=== PATIENT | male | born 1955 | race Caucasian/White ===

== ENCOUNTER 2021-07-23 12:36 | Outpatient (RCR) | payer MEDICARE, SELFPAY | END 2021-10-22 07:22 | disposition home or self-care (01) | LOC: HO.WCC 12:36 | PROVIDERS: PCP Physician Assistant Medical; Visit Provider Physician Assistant | DX: E11.621 Type 2 diabetes mellitus with foot ulcer (principal); L97.522 Non-pressure chronic ulcer of other part of left foot with fat layer exposed; I87.312 Chronic venous hypertension (idiopathic) with ulcer of left lower extremity; T87.81 Dehiscence of amputation stump; Z89.412 Acquired absence of left great toe | CPT/HCPCS: 11042; 15271; 15275; 97597; 99212; Q4186; Q4187 ==

== ENCOUNTER 2021-11-11 13:04 | Outpatient (RCR) | payer MEDICARE, SELFPAY | END 2022-05-21 09:12 | disposition home or self-care (01) | LOC: HO.WCC 13:04 | PROVIDERS: PCP Physician Assistant Medical; Visit Provider Surgery | DX: Z09 Encounter for follow-up examination after completed treatment for conditions other than malignant neoplasm (principal); L84 Corns and callosities; E11.9 Type 2 diabetes mellitus without complications; Z89.412 Acquired absence of left great toe; Z86.31 Personal history of diabetic foot ulcer | CPT/HCPCS: 11042; 15275; 97597; 99212; 99213; Q4187 ==

== ENCOUNTER 2022-06-10 08:01 | Outpatient (RCR) | payer MEDICARE, SELFPAY | END 2022-09-09 14:17 | disposition home or self-care (01) | LOC: HO.WCC 08:01 | PROVIDERS: PCP Physician Assistant Medical; Visit Provider Physician Assistant | DX: E11.621 Type 2 diabetes mellitus with foot ulcer (principal); L97.522 Non-pressure chronic ulcer of other part of left foot with fat layer exposed; L03.032 Cellulitis of left toe; Q82.0 Hereditary lymphedema; L84 Corns and callosities; E11.40 Type 2 diabetes mellitus with diabetic neuropathy, unspecified; I12.9 Hypertensive chronic kidney disease with stage 1 through stage 4 chronic kidney disease, or unspecified chronic kidney disease; N18.30 Chronic kidney disease, stage 3 unspecified; Z89.412 Acquired absence of left great toe; Z86.711 Personal history of pulmonary embolism; Z79.4 Long term (current) use of insulin | CPT/HCPCS: 11042; 11055; 15275; 99212; Q4187 ==

== ENCOUNTER 2022-11-02 07:57 | Outpatient (RCR) | payer MEDICARE, SELFPAY ==
--- NOTE | ~2022-11-02 | XR_ITS ---
EXAMINATION: XR FOOT, LEFT CLINICAL INFORMATION: Nonhealing wound of second toe. COMPARISON: None available. TECHNIQUE: AP, lateral, and oblique views of the left foot. FINDINGS: There has been a prior amputation at the level of the left first metatarsal head. The amputation margin is relatively sharp. There are left second through fourth hammertoe configurations. Charcot degenerative changes are seen of the midfoot. Boehler's angle is normal. There is a large plantar calcaneal spur. On the lateral view, there is mild irregularity of the cortical surface of the tuft of the second toe. No soft tissue gas or foreign body is seen. XR/XR foot LT min 3V IMPRESSION: There has been a prior left great toe amputation, with sharp amputation margin. There is mild cortical irregularity of the tuft of the second toe, raising the possibility of early osteomyelitis. This could be more fully evaluated with dedicated left second toe radiographs and/or MRI, if clinically indicated.
== END 2022-12-22 16:00 | disposition home or self-care (01) ==
LOC: HO.WCC 07:57
PROVIDERS: PCP Physician Assistant Medical; Visit Provider Physician Assistant
DX: E11.621 Type 2 diabetes mellitus with foot ulcer (principal); L97.522 Non-pressure chronic ulcer of other part of left foot with fat layer exposed; E11.69 Type 2 diabetes mellitus with other specified complication; M86.472 Chronic osteomyelitis with draining sinus, left ankle and foot; E11.40 Type 2 diabetes mellitus with diabetic neuropathy, unspecified; E11.22 Type 2 diabetes mellitus with diabetic chronic kidney disease; I12.9 Hypertensive chronic kidney disease with stage 1 through stage 4 chronic kidney disease, or unspecified chronic kidney disease; N18.30 Chronic kidney disease, stage 3 unspecified; Z89.412 Acquired absence of left great toe; Z86.711 Personal history of pulmonary embolism
CPT/HCPCS: 11042; 11044; 73630; 99212

== ENCOUNTER 2022-12-17 16:08 | Outpatient (REF) | payer MEDICARE, SELFPAY | END 2022-12-17 16:09 | disposition home or self-care (01) | LOC: HO.LNP 16:08 | PROVIDERS: Visit Provider Physician Assistant | DX: S91.105D Unspecified open wound of left lesser toe(s) without damage to nail, subsequent encounter (principal) | CPT/HCPCS: 87070; 87077; 87147; 87186; 87205 ==

== ENCOUNTER 2023-05-20 12:41 | Outpatient (RCR) | payer MEDICARE, SELFPAY | END 2023-08-10 17:00 | disposition home or self-care (01) | LOC: HO.WCC 12:41 | PROVIDERS: PCP Physician Assistant Medical; Visit Provider Physician Assistant | DX: E11.621 Type 2 diabetes mellitus with foot ulcer (principal); L97.525 Non-pressure chronic ulcer of other part of left foot with muscle involvement without evidence of necrosis; E11.40 Type 2 diabetes mellitus with diabetic neuropathy, unspecified; E11.610 Type 2 diabetes mellitus with diabetic neuropathic arthropathy; E11.22 Type 2 diabetes mellitus with diabetic chronic kidney disease; I12.9 Hypertensive chronic kidney disease with stage 1 through stage 4 chronic kidney disease, or unspecified chronic kidney disease; N18.30 Chronic kidney disease, stage 3 unspecified; D68.51 Activated protein C resistance; Z89.412 Acquired absence of left great toe; Z89.422 Acquired absence of other left toe(s); Z86.718 Personal history of other venous thrombosis and embolism; Z79.01 Long term (current) use of anticoagulants | CPT/HCPCS: 11042; 11043 ==

== ENCOUNTER 2023-07-20 16:30 | Inpatient (IN) | payer MEDICARE, SELFPAY ==
--- NOTE | ~2023-07-20 | CT_ITS ---
EXAMINATION: CT SCAN OF THE FOOT, LEFT WITHOUT CONTRAST CLINICAL INFORMATION: Evaluate for osteomyelitis. COMPARISON: Multiple prior examinations including most recent x-ray 07/20/2023 and prior MRI of the left foot May 2022. TECHNIQUE: CT scan of the left foot is performed with reconstruction imaging performed at the acquisition workstation. FINDINGS: There are findings consistent with advanced neuropathic arthropathy throughout the joints of the midfoot with resultant joint space narrowing, bone fragmentation, subluxation beginning at the calcaneocuboid joint and talonavicular joint through the tarsometatarsal joints, unchanged compared to examinations dating back to May 2022. There is been amputation distal to level of the head of the 1st metatarsal and distal to the level of the proximal portion of the middle phalanx of the 2nd toe. There is articular collapse at the level of the 2nd and 3rd tarsometatarsal joints, unchanged, which are compatible with arthrosis and Freiberg's infraction. There is a superficial ulceration/defect in the plantar soft tissues in the midfoot at the level of the distal cuboid. This measures 16 mm craniocaudal and 13 mm transverse and extends up to 4 mm deep to the skin. There is generalized fluid-like density surrounding this ulceration as well as throughout the foot without a clear focal fluid collection. The appearance is consistent with edema with concomitant cellulitis. Small adjacent localized abscess difficult to exclude. I do not see a definite sinus tract extending to the bone or bone erosion deep to the soft tissue defect. There is arterial calcification, unchanged. Calcaneal spurs noted. CT/CT foot LT wo IV con IMPRESSION: Superficial defect along the plantar aspect of the distal midfoot compatible with an ulceration. I suspect that there is surrounding edema/cellulitis although the soft tissue changes or diffuse throughout the foot compatible with generalized edema and/or cellulitis. I do not see a focal fluid collection/abscess although this is difficult to exclude given the generalized abnormality in the soft tissues throughout the foot. No specific findings to suggest osteomyelitis. There are extensive chronic changes throughout the foot compatible with neuropathic arthropathy which have remained unchanged. 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 The findings in the head of the 3rd metatarsal appears new since the MRI May 2022. Stable postsurgical changes.
--- NOTE | ~2023-07-20 | US_ITS ---
EXAMINATION: US VENOUS ULTRASOUND WITH DOPPLER LOWER EXTREMITY, LEFT CLINICAL INFORMATION: Swelling and redness. COMPARISON: None available. TECHNIQUE: Ultrasound of the deep veins is performed from the hip to the calf with compression sonography and color and pulse Doppler assessment. Spectral analysis with color-flow imaging is performed. FINDINGS: Left common femoral, superficial femoral and profunda femoral veins are patent. There is nonocclusive thrombus seen in the popliteal vein. Calf veins not well visualized. No Jensen's cyst. US/US venous duplex LE LT IMPRESSION: Nonocclusive thrombus in the popliteal vein. Findings were communicated to Berto Belcher by telephone on 07/20/2023 at 9:56 PM
--- NOTE | ~2023-07-20 | XR_ITS ---
EXAMINATION: XR FOOT, LEFT CLINICAL INFORMATION: History of osteochondral, swelling COMPARISON: 12/17/2022 TECHNIQUE: 3 views of the left foot. FINDINGS: Findings suggest some possible demineralization of the distal first metatarsal. There is also a foreshortened appearance to the distal phalanx of the second digit which could represent surgical change. There is also some incongruity involving the distal aspect of the proximal phalanx of the second digit. Findings may suggest some erosion involving the proximal phalanx of the third digit. The appearance of the bone is changing from previous. There is also a possible bony erosion involving the distal third metatarsal. XR/XR foot LT min 3V IMPRESSION: Findings in the first second and third digit as described. Certainly osteomyelitis could not be excluded here. Recommend pre and postcontrast MRI for full evaluation
--- NOTE | ~2023-07-20 | IR_ITS ---
CLINICAL HISTORY: IV antibiotics. PROCEDURES: 1. Real-time ultrasound guided access into the right internal jugular vein after documentation of selective vessel patency, and permanent imaging storing in the patient records. 2. Placement of a 6 Fr, 29 cm tunneled, dual-lumen power injectable Barnard CLINICIAN: Iker Rios PA-C MEDICATIONS: -Lidocaine 1% 10 ml, SQ. -Additional details, please see nursing flowsheet. Complications: None. Estimated blood loss: <5 ml Specimens: None. Contrast: None. Fluoroscopy time: 0.9 min PROCEDURE NOTE: The procedure, risks, benefits, and alternatives were carefully explained to the patient and written informed consent was obtained. The patient was placed supine on the fluoroscopy table. A timeout was performed. The right neck and chest was prepped and draped in usual sterile fashion. Local anesthesia was administered to the right neck access site with lidocaine. Under ultrasound guidance, the right internal jugular vein was accessed with a 5 fr micropuncture set. A permanent ultrasound picture was saved. A peel-away sheath was advanced over the wire. The catheter was measured and cut to length. Next, subcutaneous lidocaine was administered to the chest. Using blunt dissection, a subcutaneous tunnel was created that connects from the upper chest to the venotomy site. The catheter was pulled through the tunnel. The catheter was advanced through the sheath, which was subsequent peeled away. The catheter was tested, flushed, and sutured to the skin with its tip in the cavoatrial junction. The venotomy site was closed with surgical glue. A dry sterile dressing was applied to the chest and the venotomy site. A permanent chest fluoroscopic image was saved demonstrating the catheter tip in the cavoatrial junction. The patient was stable after the procedure was transferred back to the floor. IR/IR us guide venous access IMPRESSION: Placement of a tunneled dual-lumen Barnard catheter PLAN: -The catheter may be used immediately. This procedure was performed by Iker Rios PA-C, and supervised by Dr. Knapp
--- NOTE | ~2023-07-20 | IR_ITS ---
CLINICAL HISTORY: IV antibiotics. PROCEDURES: 1. Real-time ultrasound guided access into the right internal jugular vein after documentation of selective vessel patency, and permanent imaging storing in the patient records. 2. Placement of a 6 Fr, 29 cm tunneled, dual-lumen power injectable Barnard CLINICIAN: Iker Rios PA-C MEDICATIONS: -Lidocaine 1% 10 ml, SQ. -Additional details, please see nursing flowsheet. Complications: None. Estimated blood loss: <5 ml Specimens: None. Contrast: None. Fluoroscopy time: 0.9 min PROCEDURE NOTE: The procedure, risks, benefits, and alternatives were carefully explained to the patient and written informed consent was obtained. The patient was placed supine on the fluoroscopy table. A timeout was performed. The right neck and chest was prepped and draped in usual sterile fashion. Local anesthesia was administered to the right neck access site with lidocaine. Under ultrasound guidance, the right internal jugular vein was accessed with a 5 fr micropuncture set. A permanent ultrasound picture was saved. A peel-away sheath was advanced over the wire. The catheter was measured and cut to length. Next, subcutaneous lidocaine was administered to the chest. Using blunt dissection, a subcutaneous tunnel was created that connects from the upper chest to the venotomy site. The catheter was pulled through the tunnel. The catheter was advanced through the sheath, which was subsequent peeled away. The catheter was tested, flushed, and sutured to the skin with its tip in the cavoatrial junction. The venotomy site was closed with surgical glue. A dry sterile dressing was applied to the chest and the venotomy site. A permanent chest fluoroscopic image was saved demonstrating the catheter tip in the cavoatrial junction. The patient was stable after the procedure was transferred back to the floor. IR/IR cvc insert central tunnel IMPRESSION: Placement of a tunneled dual-lumen Barnard catheter PLAN: -The catheter may be used immediately. This procedure was performed by Iker Rios PA-C, and supervised by Dr. Knapp
--- NOTE | 2023-07-20 16:40 | ED.EXTPRO ---
HPI - Extremity Problem General Chief complaint: Skin/Abscess/Foreign Body Stated complaint: L foot ulcer that's infected.+thinner Time Seen by Provider: 07/20/23 16:37 Source: patient Mode of arrival: EMS Limitations: no limitations History of Present Illness HPI Narrative: 68 yo male with PMH of DM, osteo s/p loss of L great toe in past, factor V leiden on coumadin, HTN, HLD, obesity, recent infection back in December follows with our wound care center - + for staph aureus and stenotrophomonas maltophilia both S to levofloxacin. He has a chronic ulcer on L plantar surface of foot that the wound care center and [facility] manages. The left leg has become more swollen red and there is an odor to the wound. He denies n/v or fevers. MD Complaint: other (concern for wound infection) Onset (ago): day(s) (few) Pain Consistency: constant Location: left and lower extremity Radiation: none Relieving factors: nothing Exacerbating factors: nothing Associated symptoms: denies other symptoms Context: other (chronic foot wound) Related Data Home Medications Medication Instructions Recorded Confirmed atorvastatin 10 mg tablet 10 mg PO BEDTIME 07/20/23 07/20/23 carvedilol 25 mg tablet 25 mg PO BID 07/20/23 07/20/23 chlorthalidone 25 mg tablet 25 mg PO DAILY 07/20/23 07/20/23 glipizide 10 mg tablet 10 mg PO BID 07/20/23 07/20/23 insulin degludec 100 unit/mL (3 61 unit subcut BEDTIME 07/20/23 07/20/23 mL) subcutaneous pen (Tresiba FlexTouch U-100 insulin) insulin lispro 100 unit/mL 0 sliding scale dose subcut TIDAC 07/20/23 07/20/23 subcutaneous pen (Humalog KwikPen (U-100) Insulin) irbesartan 300 mg tablet 300 mg PO DAILY 07/20/23 07/20/23 metformin 1,000 mg tablet 1,000 mg PO BID 07/20/23 07/20/23 warfarin 10 mg tablet 10 mg PO DAILY@1800 07/20/23 07/20/23 warfarin 2 mg tablet 3 mg PO MOTHSA@1800 07/20/23 07/20/23 warfarin 2 mg tablet 4 mg PO SUTUWEFR@1800 07/20/23 07/20/23 Allergies Allergy/AdvReac Type Severity Reaction Status Date / Time No Known Allergies Allergy Verified 07/20/23 16:53 Review of Systems Review of Systems: Constitutional : No Fever, No Chills ENT/Mouth : No sore throat, No Rhinorrhea Eyes: No Eye Pain, No Swelling, No Redness Cardiovascular : No Chest Pain, No SOB, pos edema Respiratory : No Cough, No Sputum Gastrointestinal : No Nausea, No Vomiting, No Diarrhea, No abdominal Pain Genitourinary : No Dysuria, No Hematuria Musculoskeletal : No joint pain, No Myalgias, No Joint Swelling Skin : pos Skin Lesions, positive skin rash Neuro : No Weakness, No Numbness, No Headache Psych : No Anxiety, No Depression Heme/Lymph: No Bruising, No Bleeding,No Lymphadenopathy Endocrine : No Polyuria, No Polydipsia All other systems reviewed and are negative [facility] Past Medical History Attestation statement: The following information was validated with the patient. Medical History (Updated 07/20/23 @ 18:08 by Tanya Marvin DO) Amputation toe Chronic ulcer of left foot Factor V Leiden Diabetes Social History Social History (Updated 07/20/23 @ 17:02 by Tanya Marvin DO) Patient Tobacco Use Status: Never used Tobacco Advance Directives: No Advance Directives Information Provided: No Physical Exam Vital Signs: Vital Signs: Last Vital Signs Temp 98.8 F 07/20/23 16:54 Pulse 76 07/20/23 16:54 Resp 20 07/20/23 16:54 BP 123/58 L 07/20/23 16:54 Pulse Ox 95 07/20/23 16:54 O2 Del Method Room Air 07/20/23 16:54 BMI result Body Mass Index 53.8 Appearance: Alert. Oriented X3. No acute distress. Eyes: Pupils equal, round and reactive to light. ENT: Pharynx normal. Neck: Normal inspection. Neck supple. CVS: Normal heart rate and rhythm. Pulses normal. Respiratory: No respiratory distress. Breath sounds normal. Abdomen: Soft and nontender. Skin: Skin warm and dry. Normal skin color. Normal skin turgor. Extremities: bilateral pitting edema to both legs L > R. Left leg is warm and has erythema no crepitus no fluctuance bottom of foot is open dime sized packed wound with yellow foul smelling drainage - rednesss and swelling noted, no ttp, bounding 2+ pulse noted Neuro: Oriented X 3. No motor deficit. No sensory deficit. Course Course Course Narrative: unable to get CKD value from [facility] - patient states he thinks his GFR is 30 or 40 but not sure Medications Administered Discontinued Medications Generic Name Dose Route Start Last Admin Trade Name Sade PRN Reason Stop Dose Admin Levofloxacin 750 mg in 150 mls @ 100 mls/hr 07/20/23 16:53 07/20/23 17:53 Levaquin IV 07/20/23 18:22 100 mls/hr ONCE ONE Administration Medical Decision Making Medical Decision Making [facility] Narrative: 68 yo male with PMH of DM, osteo s/p loss of L great toe in past, factor V leiden on coumadin, HTN, HLD, obesity, recent infection back in December follows with our wound care center - + for staph aureus and stenotrophomonas maltophilia both S to levofloxacin now here with increased leg swelling, erythema and wound discharge - at this time concern for cellulitis vs osteo. Given recent cultures I have ordered labs, IV levofloxacin, cultures and xray for osteo. Possible admission for IV antibiotics and bone scan. Differential Diagnosis Differential Diagnoses: The differential diagnosis associated with the presentation includes cellulitis, osteo Admission/Observation Consideration of admission/observation: Escalation of care including admission/observation considered admit for IV abx and osteo workup Consult Healthcare Provider Management of the patient was discussed with: Hospitalist (agrees to admit) Lab Data [facility] Lab Attestation statement: I reviewed the patient's lab results. 07/20/23 17:47 07/20/23 17:47 Labs: Lab Results 07/20/23 Range/Units 17:47 WBC 11.4 H (4.8-10.8) X10*3/uL RBC 4.32 L (4.60-5.80) X10*6/uL Hgb 12.3 L (14.0-18.0) g/dl Hct 37.6 L (42.0-52.0) % MCV 87.0 (80.0-98.0) fL MCH 28.5 (27.0-33.0) pg MCHC 32.7 (31.0-36.0) g/dl RDW 15.9 (11.0-16.0) % Plt Count 110 L (160-400) X10*3/uL MPV 9.7 (9.4-12.4) fL Immature Gran % (Auto) 0.7 H (0.0-0.4) % Neut % (Auto) 83.0 H (45-73) % Lymph % (Auto) 6.0 L (20-40) % [place] % (Auto) 9.6 (2-11) % Eos % (Auto) 0.4 (0-4) % Baso % (Auto) 0.3 (0-2) % Lymph # (Auto) 0.7 L (1.2-4.9) X10*3/uL [place] # (Auto) 1.1 (0.1-1.2) X10*3/uL Eos # (Auto) 0.1 (0.0-0.4) X10*3/uL Baso # (Auto) 0.0 (0.0-0.2) X10*3/uL Abs Immat Gran (auto) 0.08 H (0.00-0.03) X10*3/uL Absolute Neuts (auto) 9.5 H (2.0-8.3) x10*3/uL Absolute Nucleated RBC 0.000 (0.0-0.012) X10*3/uL Nucleated RBC % (auto) 0.0 (0.0-0.2) /100WBC ESR 80 H (0-15) MM/HR PT 35.1 H (11.1-13.3) SEC INR 2.9 H (0.9-1.1) Sodium 138 (135-145) mmol/L Potassium 5.0 (3.3-5.1) mmol/L Chloride 106 (96-108) mmol/L Carbon Dioxide 26 (22-29) mmol/L Anion Gap 11 L (12-20) BUN 54 H (9-16) mg/dL Creatinine 2.42 H (0.5-1.4) mg/dL Estim Creat Clear Calc 51.0 Estimated GFR 27 Random Glucose 165 H (60-115) mg/dL Lactic Acid 1.0 (0.5-2.0) mmol/L Calcium 8.6 (8.4-10.2) mg/dL Magnesium 1.9 (1.6-2.6) mg/dL Total Bilirubin 1.6 H (0.0-1.0) mg/dL Direct Bilirubin 0.5 (0.0-0.5) mg/dL AST 13 (5-37) U/L ALT 16 (0-40) U/L Alkaline Phosphatase 61 (39-117) U/L C-Reactive Protein 18.13 H (< or = 0.50) mg/dL Total Protein 6.7 (6.5-8.0) g/dL Albumin 3.4 L (3.5-5.0) g/dL Procalcitonin 0.30 ng/mL COVID-19 (GIULIANO) Negative (Negative) COVID-19 Clin Com See Note Independent Interpretation I performed an independent interpretation of an: Plain X-Ray (possible osteo) Radiology Impression Discussion of test interpretation with radiology: I have reviewed the radiologist's reading. Independent Historian Clinical information obtained from an independent historian. History obtained from or confirmed by: EMS and Other (daughter) External Record Review External record reviewed: Prior outpatient labs Chronic Conditions Patient?s care impacted by: Diabetes Discharge Plan Discharge Clinical Impression: Cellulitis Qualifiers: Site of cellulitis: extremity Site of cellulitis of extremity: lower extremity Laterality: left Qualified Code(s): L03.116 - Cellulitis of left lower limb Chronic ulcer of left foot Qualifiers: Non-pressure ulcer stage: with fat layer exposed Qualified Code(s): L97.522 - Non-pressure chronic ulcer of other part of left foot with fat layer exposed Patient Disposition: Admitted As Inpatient
[2023-07-20 16:54] VITALS: BP 118/58; BP 123/58; PULSE 72; PULSE 76; RESP 20; TEMP 37.1; O2SAT 95; O2SAT 96; BMI 53.8
[2023-07-20] MEDS: levoFLOXacin/D5W 750 MG/150 ML PIGGYBACK 100 MG IV (17:53)
[2023-07-20 17:56] LABS: MANUAL DIFF FLAG NO
[2023-07-20 18:04] LABS: Basophils Percent Auto 0.3 % (0-2); Eosinophils Absolute Auto 0.1 X10*3/uL (0.0-0.4); Eosinophils Percent Auto 0.4 % (0-4); Hematocrit 37.6 % (42.0-52.0); Hemoglobin 12.3 g/dl (14.0-18.0); Imm Gran Abs Auto 0.08 X10*3/uL (0.00-0.03); Imm Gran Pct Auto 0.7 % (0.0-0.4); Lymphocytes Absolute Auto 0.7 X10*3/uL (1.2-4.9); Mean Corpuscular HGB Conc 32.7 g/dl (31.0-36.0); Mean Corpuscular Hemoglobin 28.5 pg (27.0-33.0); Mean Platelet Volume 9.7 fL (9.4-12.4); Monocytes Absolute Auto 1.1 X10*3/uL (0.1-1.2); Monocytes Percent Auto 9.6 % (2-11); Neutrophils Absolute Auto 9.5 x10*3/uL (2.0-8.3); Platelet Count 110 X10*3/uL (160-400); Red Blood Count 4.32 X10*6/uL (4.60-5.80); Red Cell Distribution Width 15.9 % (11.0-16.0); White Blood Count 11.4 X10*3/uL (4.8-10.8)
[2023-07-20 18:08] LABS: INTERNATIONAL NORM RATIO 2.9 (0.9-1.1); Prothrombin Time 35.1 SEC (11.1-13.3)
[2023-07-20 18:14] LABS: COVID-19 Test Negative (Negative); IDNOW Serial# 08D9AD1C
[2023-07-20 18:19] LABS: Alanine Aminotransferase 16 U/L (0-40); Albumin Level 3.4 g/dL (3.5-5.0); Alkaline Phosphatase 61 U/L (39-117); Anion Gap 11 (12-20); Aspartate Amino Transferase 13 U/L (5-37); Bilirubin Direct 0.5 mg/dL (0.0-0.5); Bilirubin Total 1.6 mg/dL (0.0-1.0); Blood Urea Nitrogen 54 mg/dL (9-16); C Reactive Protein 18.13 mg/dL (< or = 0.50); Calcium 8.6 mg/dL (8.4-10.2); Carbon Dioxide 26 mmol/L (22-29); Chloride 106 mmol/L (96-108); Estimated Glomerular Filt Rate 27; Glucose Random 165 mg/dL (60-115); Magnesium 1.9 mg/dL (1.6-2.6); Sodium 138 mmol/L (135-145); Total Protein 6.7 g/dL (6.5-8.0)
[2023-07-20 18:46] LABS: Erythrocyte Sedimentation Rate 80 MM/HR (0-15)
--- NOTE | 2023-07-20 19:05 | PHA.MEDREC ---
Pharmacy Consult ? Medication Reconciliation Pharmacy has completed the medication reconciliation. Patient reported medications. Patient unsure of 4th antihypertensive medications. Patient thought it was atenolol but patient is on carvedilol, there is not claim history atenolol or any other additional BP medications. patient mainly concern with warfarin is scheduled is SuTuWeFr 14 mg and MoThSa 13 mg. Baylee Canales, PharmD
--- NOTE | 2023-07-20 20:08 | P.HPHOSP_ITS ---
History of Present Illness Date of Service: 07/20/23 Chief Complaint: Leg redness and swelling This is a 68-year-old male with pertinent history of factor V leiden deficiency on Coumadin, essential hypertension, insulin-dependent diabetes mellitus, RUBEN on CPAP, history of osteo s/p left great toe apmutation, chronic kidney disease who presents to the emergency department for evaluation of left leg redness and swelling. Patient states he recently came from a trip from the [facility] and noticed left leg swelling and redness. No pain. Patient states he has a chronic ulcer on the ventral aspect of the left foot which has been draining. No fevers or chills. Denies chest discomfort, palpitations, shortness of breath, abdominal pain, changes in urinary or bowel habits. In the ER, extensive cellulitis seen on the left leg and patient was initiated on IV antibiotics. Imaging concerning for underlying osteomyelitis. Review of Systems 2 Constitutional: Constitutional: Reports no additional constitutional complaints Cardiovascular: Cardiovascular: Reports no additional cardiovascular complaints Respiratory: Respiratory: Reports no additional respiratory complaints Gastrointestinal: Gastrointestinal: Reports no additional gastrointestinal complaints Genitourinary: Genitourinary: Reports no additional male genitourinary complaints [facility] Medical History Amputation toe Chronic ulcer of left foot Factor V Leiden Diabetes Pertinent family history: No family history of early CAD Social History Unable to assess alcohol history related to: Unknown Alcohol intake: former Patient Tobacco Use Status: Never used Tobacco Smoked in Last 30 Days: No Use of substances other than those prescribed or required for medical reasons: No Advance Directives: No Advance Directives Information Provided: No Meds Allergies Allergy/AdvReac Type Severity Reaction Status Date / Time No Known Allergies Allergy Verified 07/20/23 16:53 Home Medications Medication Instructions Recorded Confirmed Last Taken Type atorvastatin 10 mg tablet 10 mg PO BEDTIME 07/20/23 07/20/23 07/19/23 History carvedilol 25 mg tablet 25 mg PO BID 07/20/23 07/20/23 07/20/23 History chlorthalidone 25 mg tablet 25 mg PO DAILY 07/20/23 07/20/23 07/20/23 History glipizide 10 mg tablet 10 mg PO BID 07/20/23 07/20/23 07/20/23 History insulin degludec 100 unit/mL (3 61 unit subcut BEDTIME 07/20/23 07/20/23 07/19/23 History mL) subcutaneous pen (Tresiba FlexTouch U-100 insulin) insulin lispro 100 unit/mL 0 sliding scale dose subcut TIDAC 07/20/23 07/20/23 07/20/23 History subcutaneous pen (Humalog KwikPen (U-100) Insulin) irbesartan 300 mg tablet 300 mg PO DAILY 07/20/23 07/20/23 07/20/23 History metformin 1,000 mg tablet 1,000 mg PO BID 07/20/23 07/20/23 07/20/23 History warfarin 10 mg tablet 10 mg PO DAILY@1800 07/20/23 07/20/23 07/19/23 History warfarin 2 mg tablet 3 mg PO MOTHSA@1800 07/20/23 07/20/23 07/18/23 History warfarin 2 mg tablet 4 mg PO SUTUWEFR@1800 07/20/23 07/20/23 07/19/23 History Physical Exam 2 Vital Signs and Narrative: Vital Signs: Last Vital Signs Temp 98.8 F 07/20/23 16:54 Pulse 76 07/20/23 16:54 Resp 20 07/20/23 16:54 BP 123/58 L 07/20/23 16:54 Pulse Ox 95 07/20/23 16:54 O2 Del Method Room Air 07/20/23 16:54 BMI result Body Mass Index 53.8 Middle-aged male lying in bed in no distress Neck supple, no JVD Regular rate and rhythm, S1-S2 heard Regular breath sounds bilaterally, no wheezing or crackles appreciated Abdomen soft nontender, no guarding, no rigidity Patient is awake, alert and oriented to self, place, time and person ; no focal motor deficit Msk: Left leg with erythema and swelling up to the cough. Amputation of left great toe, ulcer on the ventral aspect of left foot with drainage Psych: Normal mood Bilateral venous stasis changes Results Labs 07/20/23 17:47 07/20/23 17:47 Labs: Laboratory Results - last 24 hr 07/20/23 17:47 MCV 87.0 MCH 28.5 MCHC 32.7 RDW 15.9 Plt Count 110 L MPV 9.7 Immature Gran % (Auto) 0.7 H Neut % (Auto) 83.0 H Lymph % (Auto) 6.[address] [place] % (Auto) 9.6 Eos % (Auto) 0.4 Baso % (Auto) 0.3 Lymph # (Auto) 0.[address] [place] # (Auto) 1.1 Eos # (Auto) 0.1 Baso # (Auto) 0.0 Abs Immat Gran (auto) 0.08 H Absolute Neuts (auto) 9.5 H Absolute Nucleated RBC 0.000 Nucleated RBC % (auto) 0.0 ESR 80 H PT 35.1 H INR 2.9 H Anion Gap 11 L Estim Creat Clear Calc 51.0 Estimated GFR 27 Random Glucose 165 H Lactic Acid 1.0 Calcium 8.6 Magnesium 1.9 Total Bilirubin 1.6 H Direct Bilirubin 0.5 AST 13 ALT 16 Alkaline Phosphatase 61 C-Reactive Protein 18.13 H Total Protein 6.7 Albumin 3.4 L Procalcitonin 0.30 COVID-19 (GIULIANO) Negative COVID-19 Clin Com See Note Imaging Radiologist's Impressions: Impressions Foot X-Ray 07/20/23 17:13 IMPRESSION: Findings in the first second and third digit as described. Certainly osteomyelitis could not be excluded here. Recommend pre and postcontrast MRI for full evaluation Assessment and Plan (1) Cellulitis: Qualifiers: Laterality: left Site of cellulitis: extremity Site of cellulitis of extremity: lower extremity Qualified Code(s): L03.116 - Cellulitis of left lower limb Status: Acute Plan This is a 68-year-old male with pertinent history of factor V leiden deficiency on Coumadin, essential hypertension, insulin-dependent diabetes mellitus, RUBEN on CPAP, history of osteo s/p left great toe apmutation, chronic kidney disease who presents to the emergency department for evaluation of left leg redness and swelling. #. Cellulitis of left leg: Will admit patient and initiate IV antibiotics due to extensive cellulitis. No sepsis. #. Chronic left foot ulcer: Imaging with concerns for underlying osteomyelitis. Obtain additional imaging. Previous wound culture report reviewed #. Factor V leiden deficiency on Coumadin #. Essential hypertension: Continue home antihypertensives #. Chronic kidney disease: unclear baseline. Monitor creatinine and urine output. Avoid nephrotoxins #. Insulin-dependent diabetes mellitus: Reduce basal insulin while in the hospital. Initiating Accu-Cheks with sliding scale insulin. #. RUBEN: CPAP at bedtime DVT prophylaxis: On coumadin Full code Admit as inpatient and will require two night minimum hospital stay for IV abx (as above) Quality Stroke Does the patient have a stroke diagnosis?: No VTE Prior VTE?: No VTE Risk Level:: Medical - moderate - high VTE Device Contraindication: Treatment Not Tolerated VTE Drug Contraindication: N/A - Med Ordered
[2023-07-20 20:09] VITALS: BP 110/47; PULSE 76; RESP 20; TEMP 37.1; O2SAT 96
[2023-07-20] MEDS: Warfarin Sodium 10 MG TABLET PO (20:57)
[2023-07-20] MEDS: Warfarin Sodium 4 MG TABLET PO (20:58)
[2023-07-20] MEDS: Insulin Glargine,Hum.rec.anlog 100 UNIT/ML 10 ML VIAL 50 UNIT SUBCUT (21:10)
[2023-07-20] MEDS: vancomycin/NS 2,000 MG/500 ML PLAST..BAG 250 MG IV (21:11)
[2023-07-20] MEDS: carvediloL 25 MG TABLET PO (21:11)
[2023-07-20] MEDS: Atorvastatin Calcium 10 MG TABLET PO (21:12)
--- NOTE | 2023-07-20 21:16 | PHA.PROG ---
Admission Date/Time: July 20, 2023 20:09 Indication: Cellulitis - possible osteo Weight in k kg Adjusted body weight in K.9 kg [place] body weight in K.9 kg Obesity Dosing Indication % IBW: 231% Serum Creatinine - Last 168 Hours 07/20/23 17:47 Creatinine 2.42 H Estimated CrCl and GFR - Last 168 Hours 07/20/23 17:47 Estim Creat Clear Calc 51.0 Estimated GFR 27 Vancomycin Loading Dose: 2000 mg Current Vancomycin Dosing Regimen: 1250 mg Q24H Date and Time for next Vancomycin Level to be drawn: 07/22 @ 1900 Pharmacist Comments on Vancomycin Plan: Patient received load dose in the ER 07/20 @ 2110 Maintenance dose vancomycin 1250 mg Q24H is scheduled to start 07/21 @ 2100. Predicted AUC 508 with a trough of 16.7 Patient is morbidly obese therefore careful monitor is required due to vancomycin high volume of distribution Pharmacy will monitor renal function daily and adjust according if necessary Random level will be drawn prior to 3rd dose to access for safety and efficacy Baylee Canales PharmD Vancomycin dosing will take advantage of [employer] as a clinical decision support tool that uses Bayesian modeling to calculate individual patient's pharmacokinetic parameters and forecast the patient's drug concentration time course with the target goal AUC 24 range of 400 - 600 mg/L/hr.
[2023-07-20 21:22] LABS: Glucose, Whole Blood 169 mg/dL (60-115)
[2023-07-20] MEDS: Insulin Lispro 100 UNIT/ML 3 ML VIAL SUBCUT (21:24)
[2023-07-20 23:16] VITALS: RESP 14
--- NOTE | 2023-07-20 23:20 | PC.NURSE ---
Took over care from PEPE Llanes, pt sleeping at this time, vital taken.
[2023-07-21] VITALS (7 sets, daily range): BP systolic 102–134; BP diastolic 52–61; PULSE 64–74; RESP 14–20; TEMP 35.9–36.8; O2SAT 94–100
--- NOTE | 2023-07-21 04:41 | PC.NURSE ---
pt sleeping, no sign of distress.
--- NOTE | 2023-07-21 04:46 | PC.NURSE ---
Called report to receiving unit, pt being transport by [facility]
[2023-07-21] MEDS: 0.9 % Sodium Chloride Flush 3 ML SYRINGE IVFLUSH ×4 (05:00→21:43)
--- NOTE | 2023-07-21 05:06 | PC.NURSE ---
Checked pedal pluses with Doppler, faint pluses are marked, left leg edematous and red, dressing in placed and intact.
--- NOTE | 2023-07-21 05:33 | HO.SKINPHOTO ---
Location: bottom of left foot Category: Stage: Length: Width: Depth: cm Location: Category: Stage: Length: Width: Depth: cm Location: Category: Stage: Length: Width: Depth: cm Location: Category: Stage: Length: Width: Depth: cm Location: Category: Stage: Length: Width: Depth: cm Location: Category: Stage: Length: Width: Depth: cm
[2023-07-21 06:01] LABS: MANUAL DIFF FLAG NO
[2023-07-21 06:10] LABS: INTERNATIONAL NORM RATIO 3.3 (0.9-1.1); Prothrombin Time 39.9 SEC (11.1-13.3)
[2023-07-21 06:15] LABS: Basophils Percent Auto 0.2 % (0-2); Eosinophils Absolute Auto 0.1 X10*3/uL (0.0-0.4); Eosinophils Percent Auto 0.4 % (0-4); Hematocrit 35.1 % (42.0-52.0); Hemoglobin 11.2 g/dl (14.0-18.0); Imm Gran Abs Auto 0.06 X10*3/uL (0.00-0.03); Imm Gran Pct Auto 0.5 % (0.0-0.4); Lymphocytes Absolute Auto 0.9 X10*3/uL (1.2-4.9); Lymphocytes Percent Auto 7.8 % (20-40); Mean Corpuscular HGB Conc 31.9 g/dl (31.0-36.0); Mean Corpuscular Hemoglobin 27.9 pg (27.0-33.0); Mean Corpuscular Volume 87.5 fL (80.0-98.0); Mean Platelet Volume 11.2 fL (9.4-12.4); Monocytes Absolute Auto 1.1 X10*3/uL (0.1-1.2); Monocytes Percent Auto 9.1 % (2-11); Neutrophils Absolute Auto 9.5 x10*3/uL (2.0-8.3); Red Blood Count 4.01 X10*6/uL (4.60-5.80); White Blood Count 11.6 X10*3/uL (4.8-10.8)
[2023-07-21 06:16] LABS: Platelet Count 71 X10*3/uL (160-400)
[2023-07-21 06:19] LABS: Anion Gap 14 (12-20); Blood Urea Nitrogen 57 mg/dL (9-16); Calcium 8.2 mg/dL (8.4-10.2); Carbon Dioxide 21 mmol/L (22-29); Chloride 108 mmol/L (96-108); Creatinine Clr Calc Pharmacy 51.3; Estimated Glomerular Filt Rate 27; Glucose Random 83 mg/dL (60-115); Potassium 4.5 mmol/L (3.3-5.1); Sodium 138 mmol/L (135-145)
[2023-07-21 07:31] LABS: Glucose, Whole Blood 88 mg/dL (60-115)
[2023-07-21] MEDS: carvediloL 25 MG TABLET PO ×2 (08:33→21:35)
--- NOTE | 2023-07-21 08:41 | HE.PHANOTE ---
VANCO DOSE ADJUSTMENT BASED ONSCR DOSE CONTINUED AT [id number]. NEXT TROUGH 07/22 @ 1900
--- NOTE | 2023-07-21 09:52 | PM.HEMONCCN ---
Subjective - Subjective Chief complaint: Consult for: Left lower extremity DVT. Patient: new to practice Consult date: 07/21/23 Requesting Physician: Rainer. Primary Care Provider: SAUL ANAYA Medical Summary: DIAGNOSIS: LEFT LOWER EXTREMITY DVT. HPI - Consult Narrative Reason for consult: Consult for: DVT. Narrative: Tomi Simmons is a 68 year old gentleman referred for DVT on warfarin. He has an underlying history of factor V leiden deficiency. He presented to the emergency department for evaluation of left leg redness and swelling. He recently came from a trip from [facility]. He noticed left leg swelling and redness. No pain. He has a chronic ulcer on the ventral aspect of the left foot which has been draining. When the wound care nurse came she advised him to go to the ER. No fevers or chills. Denies chest discomfort, palpitations, shortness of breath, abdominal pain, changes in urinary or bowel habits. In the ER, extensive cellulitis seen on the left leg and patient was initiated on IV antibiotics. Imaging concerning for underlying osteomyelitis. Ultrasound of the left lower extremity revealed: Nonocclusive thrombus in the popliteal vein. Review of Systems Constitutional: Constitutional: Reports no additional constitutional complaints Cardiovascular: Cardiovascular: Reports no additional cardiovascular complaints Respiratory: Respiratory: Reports no additional respiratory complaints Gastrointestinal: Gastrointestinal: Reports no additional gastrointestinal complaints Genitourinary: Genitourinary: Reports no additional male genitourinary complaints REPLACED BY [facility] Medical History: H/O Essential hypertension, insulin-dependent diabetes mellitus, RUBEN on CPAP, History of osteo s/p left great toe amputation, Chronic kidney disease Chronic ulcer of left foot He tells me he had patellar tendon surgery in 1991 at [facility]. Subsequent to that he was noted to have a left leg DVT. In 2014 he presented with shortness of breath. This time he was noted to have a pulmonary embolism. He had to stay in the ICU for a week. He was under the care of Dr. Ablright. This time he had a hypercoagulable workup done and was noted to have Factor V Leiden. He has been maintained on warfarin since then. He goes to [facility]mad[facility] Clinic at [facility]. Diabetes Family history: His dad had blood clots. His youngest daughter 31 was diagnosed with factor 5 Leiden mutation. 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 He is . He has 2 daughters. Thirty-four and 31. He denies smoking. Denies alcohol. Unable to assess alcohol history related to: Unknown Alcohol intake: former Patient Tobacco Use Status: Never used Tobacco Smoked in Last 30 Days: No Use of substances other than those prescribed or required for medical reasons: No Advance Directives: No Advance Directives Information Provided: No Review of Systems - Constitutional Reports system reviewed and no additional complaints, except as documented, Reports weakness, Reports weight loss, Denies fever(s) - Eyes Reports system reviewed and no additional complaints, except as documented - ENT Reports system reviewed and no additional complaints, except as documented - Cardiovascular Reports system reviewed and no additional complaints, except as documented - Respiratory Reports no additional respiratory complaints - Gastrointestinal Reports system reviewed and no additional complaints, except as documented - Genitourinary Genitourinary: Reports no additional male genitourinary complaints - Musculoskeletal Reports system reviewed and no additional complaints, except as documented - Integumentary/Breasts Skin/Breast: Reports no additional skin complaints - Neurologic Reports system reviewed and no additional complaints, except as documented - Psychiatric Reports system reviewed and no additional complaints, except as documented - Endocrine Reports no additional endocrine complaints - Hematologic/Lymphatic Reports system reviewed and no additional complaints, except as documented - Allergic/Immunologic Reports system reviewed and no additional complaints, except as documented PMFSH Medical History: Medical History (Last Reviewed 07/22/23 @ 23:36 by Viky Garcia MD) Amputation toe Chronic ulcer of left foot Diabetes Factor V Leiden Functional capacity: uses cane/walker Patient : No Social History: Social History (Last Reviewed 07/22/23 @ 23:36 by Viky Garcia MD) Living Situation History: Household Members: Children Housing: House Do you presently have visiting nurse or other home services: Yes Do you presently have visiting nurse or other home services comment: vna's 2x week Alcohol History: Unable to assess alcohol history related to: Unknown Tobacco History: Patient Tobacco Use Status: Never used Tobacco Occupation Assessmet: service: No Home Medications and Allergies Current Medications: Current Medications Acetaminophen (Acetaminophen 325 Mg Tablet) 650 mg PO Q6H PRN PRN Reason: Pain, Mild (Pain Scale 1-3) Atorvastatin Calcium (Atorvastatin Calcium 10 Mg Tablet) 10 mg PO BEDTIME TAMI Last Admin: 07/20/23 21:12 Dose: 10 mg Carvedilol (Carvedilol 25 Mg Tablet) 25 mg PO BID [facility]; Protocol Last Admin: 07/21/23 08:33 Dose: 25 mg Dextrose (Dextrose 50 % 25 Gm/50 Ml Syringe) 25 gm IVPUSH Q15M PRN; Protocol PRN Reason: per Hypoglycemia Standing Ord. Glucose (Glucose Gel 15 Gm Gel..Gram.) 15 gm PO Q15M PRN; Protocol PRN Reason: per Hypoglycemia Standing Ord. Hydrochlorothiazide (Hydrochlorothiazide 25 Mg Tablet) 25 mg PO DAILY [facility] Levofloxacin (Levaquin) 750 mg in 150 mls @ 100 mls/hr IV Q24H [facility] Vancomycin HCl 1,250 mg/ (Sodium Chloride) 250 mls @ 166.667 mls/hr IV Q24H [facility] Insulin Glargine (Insulin Glargine,Hum.Rec.Anlog 100 Unit/Ml 10 Ml Vial) 50 unit SUBCUT BEDTIME [facility] Last Admin: 07/20/23 21:10 Dose: 50 unit Insulin Human Lispro (Insulin Lispro 100 Unit/Ml 3 Ml Vial) 0 unit SUBCUT QIDACHS [facility]; Protocol Last Admin: 07/21/23 07:32 Dose: Not Given Melatonin (Melatonin 3 Mg Tablet) 6 mg PO BEDTIME PRN PRN Reason: Insomnia Ondansetron HCl (Ondansetron Hcl 4 Mg/2 Ml Vial) 4 mg IVPUSH Q8H PRN PRN Reason: Nausea and Vomiting Pharmacy Consult (Consult Rx Vancomycin Dosing) 1 each MISCELLANE DAILY PRN PRN Reason: Consult order Sodium Chloride (0.9 % Sodium Chloride Flush 3 Ml Syringe) 3 ml IVFLUSH QSHIFT [facility] Last Admin: 07/21/23 08:33 Dose: 3 ml Valsartan (Valsartan 160 Mg Tablet) 160 mg PO DAILY [facility] Warfarin Sodium (Warfarin Sodium 3 Mg Tablet) 3 mg PO MOTHSA@1800 [facility] Warfarin Sodium (Warfarin Sodium 4 Mg Tablet) 4 mg PO SUTUWEFR@1800 [facility] Last Admin: 07/20/23 20:58 Dose: 4 mg Warfarin Sodium (Warfarin Sodium 10 Mg Tablet) 10 mg PO DAILY@1800 [facility] Last Admin: 07/20/23 20:57 Dose: 10 mg Home Medications Medication Instructions Recorded Confirmed Type atorvastatin 10 mg tablet 10 mg PO BEDTIME 07/20/23 07/20/23 History carvedilol 25 mg tablet 25 mg PO BID 07/20/23 07/20/23 History chlorthalidone 25 mg tablet 25 mg PO DAILY 07/20/23 07/20/23 History glipizide 10 mg tablet 10 mg PO BID 07/20/23 07/20/23 History insulin degludec 100 unit/mL (3 61 unit subcut BEDTIME 07/20/23 07/20/23 History mL) subcutaneous pen (Tresiba FlexTouch U-100 insulin) insulin lispro 100 unit/mL 0 sliding scale dose subcut TIDAC 07/20/23 07/20/23 History subcutaneous pen (Humalog KwikPen (U-100) Insulin) irbesartan 300 mg tablet 300 mg PO DAILY 07/20/23 07/20/23 History metformin 1,000 mg tablet 1,000 mg PO BID 07/20/23 07/20/23 History warfarin 10 mg tablet 10 mg PO DAILY@1800 07/20/23 07/20/23 History warfarin 2 mg tablet 3 mg PO MOTHSA@1800 07/20/23 07/20/23 History warfarin 2 mg tablet 4 mg PO SUTUWEFR@1800 07/20/23 07/20/23 History Allergies Allergy/AdvReac Type Severity Reaction Status Date / Time No Known Allergies Allergy Verified 07/20/23 16:53 Physical Exam Vital signs: Vital Signs Temp 96.7 F L 07/21/23 07:22 Pulse 69 07/21/23 07:22 Resp 18 07/21/23 07:22 BP 102/54 L 07/21/23 07:22 Pulse Ox 99 07/21/23 07:22 O2 Del Method Room Air 07/21/23 07:22 Intake & Output 07/20/23 07/21/23 07/21/23 18:59 06:59 18:59 Intake Total 950 / 950 Balance 950 / 950 Intake: Intake, Oral Amount 300 / 300 Intake, IV Amount 650 / 650 levoFLOXacin/D5W 750 mg In 150 150 / 150 ml @ 100 mls/hr IV ONCE ONE Rx# :[id number] vancomycin/NS 2,000 mg In 500 500 / 500 ml @ 250 mls/hr IV ONCE ONE Rx# :[id number] Other: Number of Unmeasured Voids 1 Number of Bowel Movements 0 Urine Bathroom Urine Color Yellow Last Bowel Movement 07/19/23 Weight 185 kg Weight 185 kg - Constitutional Present: mild distress - Routine HEENT Exam Head: Present: normal inspection, normocephalic Eye: Present: normal appearance ENT: Present: normal exam - Routine Neck Exam Present: supple - Routine Respiratory Exam Present: CTAB - Routine Cardiovascular Exam Cardiovascular: Present: S1, S2 - Routine Abdominal Exam Present: normal bowel sounds, nontender - Routine Extremities Exam Present: nontender Hem/Onc Consult Result - Labs CBC & Chem 7: 07/21/23 04:51 07/24/23 05:32 Labs: Short CBC 07/20/23 07/21/23 Range/Units 17:47 04:51 WBC 11.4 H 11.6 H (4.8-10.8) X10*3/uL Hgb 12.3 L 11.2 L (14.0-18.0) g/dl Hct 37.6 L 35.1 L (42.0-52.0) % Plt Count 110 L 71 L D (160-400) X10*3/uL BMP 07/20/23 07/21/23 17:47 04:50 Sodium 138 138 Potassium 5.0 4.5 Chloride 106 108 Carbon Dioxide 26 21 L BUN 54 H 57 H Creatinine 2.42 H 2.41 H Calcium 8.6 8.2 L Liver Function 07/20/23 Range/Units 17:47 Total Bilirubin 1.6 H (0.0-1.0) mg/dL Direct Bilirubin 0.5 (0.0-0.5) mg/dL AST 13 (5-37) U/L ALT 16 (0-40) U/L Alkaline Phosphatase 61 (39-117) U/L Albumin 3.4 L (3.5-5.0) g/dL Assessment and Plan Patient Active problem list reviewed?: Yes (1) Left leg DVT Status: Acute Assessment and plan: This is a 68-year-old gentleman. He has an underlying history of factor V leiden deficiency. He presented to the emergency department for evaluation of left leg redness and swelling. He recently came from a trip from the [facility] and noticed left leg swelling and redness. No pain. He has a chronic ulcer on the ventral aspect of the left foot which has been draining. He has a previous DVT on the left leg noted after patellar tendon repair in 1991. In 2014 Ultrasound of the left lower extremity revealed: Nonocclusive thrombus in the popliteal vein. It appears that age of the DVT is indeterminate. Since it is nonocclusive could be chronic. PLAN: However since this happened on therapeutic warfarin(INR a couple of days prior to admission was 2.3.) I would switch him over to a NOAC. Reviewing data comparing Eliquis and Xarelto, Xarelto appears to be superior especially in the setting of obesity. Would switch once INR goes down to 2 or below. Will give him the loading dose of 15 mg b.i.d. for 21 days then switch him to 20 mg daily maintenance. Thank you for this consult Will follow along with you. CC: Saul Anaya. - Time Spent With Patient Time Spent with Patient (in minutes): 30
--- NOTE | 2023-07-21 10:58 | MHC.CM.PN ---
Addendum entered by Kanchan Garcia 07/21/23 12:03: Patient from home. His dtr lives with him. He states that he uses a cane. He is independent with ADLs. He is active with [facility]. His home care nurse sent him to ER via ALS. He was sent to the hospital for ss of worsening LLE/foot infection and edema. A referral has been sent to the [facility]NA. [facility] Patients dtr will provide transportation home. Original Note: [facility] A referral has been sent to resume services at discharge.
[2023-07-21 11:24] LABS: Glucose, Whole Blood 217 mg/dL (60-115)
[2023-07-21] MEDS: Insulin Lispro 100 UNIT/ML 3 ML VIAL SUBCUT ×3 (11:56→21:35)
--- NOTE | 2023-07-21 12:04 | HO.WOUND ---
Wound Consult: Initial 68yr old male admitted to [facility] on?07/20/23 20:09 - See progress notes and H&P for detailed history. Pt follows closly with Outpt wound Clinic - Pt reports he goes to clinic every tuesday and has VNA services to his home Tuesday and Wednesdays. Recommend continued follow up at time of D/C - appears to have scheduled appt for 07/29/23 per chart review. Right Plantar Foot Etiology:Diabetic Foot Wound Measurements: 1cm x 0.8cm x 0.4cm Wound Bed: [place] moist tissue with yellow white slough Drainage / Odor: Moderate amount of serous scant amount of blood tinged drainage on dressing Edges: ? macerated callused Cris wound: ?pink blanchable tissue there is an area of epidermal lifting creating a a pocket for serous fluid collection No Induration, No Fluctuance, No Warmth Pain: Reports neuropathy Goals of Treatment: ? Durafiber AG for moisture management Recommendations: 1. Turn and Reposition every 2 hours and as needed for patient comfort consider use of wedges available in the storeroom. 2. Off Load all bony prominences with use of pillows, wedges and heel boots. 3. Monitor for incontinence and moisture control. 4. Provide adequate and supplemental nutrition. 5. Order low air loss mattress. 6. Maintain blood glucose levels per Providers orders. 7. Left Plantar Foot - Elevate lower leg and off load pressure from bottom of foot. Cleanse with NS, pat dry. Apply skin prep to periwound - lightly pack wound bed with cut strip of Durafiber AG, leave a wick for easy removal. Change Daily while inpatient. Re-consult wound care Nurse for
[2023-07-21 16:59] LABS: Glucose, Whole Blood 181 mg/dL (60-115)
--- NOTE | 2023-07-21 17:07 | HO.PM.IMPN ---
Subjective Subjective Date of Service: 07/21/23 Interval History: seen and examined this morning follow up for ROSALINE, LLE thrombus, left foot wound no pain, fever or chills recently returned from [place] where he had a few days of diarrhea which has since resolved.noticed he had drainage from chronic foot wound and came to the hospital for evaluation Review of Systems Review of Systems: Yes all other systems are reviewed and are negative Constitutional Constitutional: Denies chills and Denies fever(s) Cardiovascular Cardiovascular: Denies chest pain, Denies palpitations and Denies dyspnea Respiratory Respiratory: Denies cough and Denies dyspnea Gastrointestinal Gastrointestinal: Denies abdominal pain Endocrine Endocrine: Denies palpitations Physical Exam Vital Signs: Vital Signs: Last Vital Signs Temp 97.1 F 07/21/23 15:38 Pulse 70 07/21/23 15:38 Resp 20 07/21/23 15:38 BP 134/60 07/21/23 15:38 Pulse Ox 100 07/21/23 15:38 O2 Del Method Room Air 07/21/23 15:38 BMI result Body Mass Index 53.8 Const: General: cooperative, comfortable, no acute distress, alert and awake Nutritional Appearance: obese Orientation/consciousness: patient oriented x3 Resp: Effort & Inspection: normal respiratory effort, able to speak in complete sentences, no respiratory distress and no use of accessory muscles Cardio: Rate: regular rate GI: Inspection: No distended Palpation (GI): nontender Skin: Other: clean ulcer present bottom left foot, no surrounding erythema, scant serous drainage Neuro: General: patient oriented x3, moves all extremities and CN's II-XI intact bilaterally Extrem: General: Yes no pedal edema Objective Data Active Medications Acetaminophen (Acetaminophen 325 Mg Tablet) 650 mg PO Q6H PRN PRN Reason: Pain, Mild (Pain Scale 1-3) Atorvastatin Calcium (Atorvastatin Calcium 10 Mg Tablet) 10 mg PO BEDTIME [facility] Last Admin: 07/20/23 21:12 Dose: 10 mg Documented By: MIKALA Carvedilol (Carvedilol 25 Mg Tablet) 25 mg PO BID [facility]; Protocol Last Admin: 07/21/23 08:33 Dose: 25 mg Documented By: COTEMA Dextrose (Dextrose 50 % 25 Gm/50 Ml Syringe) 25 gm IVPUSH Q15M PRN; Protocol PRN Reason: per Hypoglycemia Standing Ord. Glucose (Glucose Gel 15 Gm Gel..Gram.) 15 gm PO Q15M PRN; Protocol PRN Reason: per Hypoglycemia Standing Ord. Hydrochlorothiazide (Hydrochlorothiazide 25 Mg Tablet) 25 mg PO DAILY [facility] Levofloxacin (Levaquin) 750 mg in 150 mls @ 100 mls/hr IV Q24H [facility] Vancomycin HCl 1,250 mg/ (Sodium Chloride) 250 mls @ 166.667 mls/hr IV Q24H [facility] Insulin Glargine (Insulin Glargine,Hum.Rec.Anlog 100 Unit/Ml 10 Ml Vial) 50 unit SUBCUT BEDTIME [facility] Last Admin: 07/20/23 21:10 Dose: 50 unit Documented By: MIKALA Insulin Human Lispro (Insulin Lispro 100 Unit/Ml 3 Ml Vial) 0 unit SUBCUT QIDACHS [facility]; Protocol Last Admin: 07/21/23 17:06 Dose: 2 unit Documented By: RACHEL Melatonin (Melatonin 3 Mg Tablet) 6 mg PO BEDTIME PRN PRN Reason: Insomnia Ondansetron HCl (Ondansetron Hcl 4 Mg/2 Ml Vial) 4 mg IVPUSH Q8H PRN PRN Reason: Nausea and Vomiting Pharmacy Consult (Consult Rx Vancomycin Dosing) 1 each MISCELLANE DAILY PRN PRN Reason: Consult order Sodium Chloride (0.9 % Sodium Chloride Flush 3 Ml Syringe) 3 ml IVFLUSH QSHIFT [facility] Last Admin: 07/21/23 17:06 Dose: 3 ml Documented By: RACHEL Valsartan (Valsartan 160 Mg Tablet) 160 mg PO DAILY [facility] Labs 07/21/23 04:51 07/21/23 04:50 Labs: Laboratory Results - last 24 hr 07/20/23 07/20/23 07/21/23 17:47 21:09 04:50 MCV 87.0 MCH 28.5 MCHC 32.7 RDW 15.9 Plt Count 110 L MPV 9.7 Immature Gran % (Auto) 0.7 H Neut % (Auto) 83.0 H Lymph % (Auto) 6.0 L [place] % (Auto) 9.6 Eos % (Auto) 0.4 Baso % (Auto) 0.3 Lymph # (Auto) 0.7 L [place] # (Auto) 1.1 Eos # (Auto) 0.1 Baso # (Auto) 0.0 Abs Immat Gran (auto) 0.08 H Absolute Neuts (auto) 9.5 H Absolute Nucleated RBC 0.000 Nucleated RBC % (auto) 0.0 ESR 80 H PT 35.1 H INR 2.9 H Anion Gap 11 L 14 Estim Creat Clear Calc 51.0 51.3 Estimated GFR 27 27 POC Glucose 169 H Random Glucose 165 H 83 Lactic Acid 1.0 Calcium 8.6 8.2 L Magnesium 1.9 Total Bilirubin 1.6 H Direct Bilirubin 0.5 AST 13 ALT 16 Alkaline Phosphatase 61 C-Reactive Protein 18.13 H Total Protein 6.7 Albumin 3.4 L Procalcitonin 0.30 COVID-19 (GIULIANO) Negative COVID-19 Clin Com See Note 07/21/23 07/21/23 07/21/23 04:51 07:27 11:19 MCV 87.5 MCH 27.9 MCHC 31.9 RDW 16.0 Plt Count 71 L D MPV 11.2 Immature Gran % (Auto) 0.5 H Neut % (Auto) 82.0 H Lymph % (Auto) 7.8 L [place] % (Auto) 9.1 Eos % (Auto) 0.4 Baso % (Auto) 0.2 Lymph # (Auto) 0.9 L [place] # (Auto) 1.1 Eos # (Auto) 0.1 Baso # (Auto) 0.0 Abs Immat Gran (auto) 0.06 H Absolute Neuts (auto) 9.5 H Absolute Nucleated RBC 0.000 Nucleated RBC % (auto) 0.0 ESR PT 39.9 H INR 3.3 H Anion Gap Estim Creat Clear Calc Estimated GFR POC Glucose 88 217 H Random Glucose Lactic Acid Calcium Magnesium Total Bilirubin Direct Bilirubin AST ALT Alkaline Phosphatase C-Reactive Protein Total Protein Albumin Procalcitonin COVID-19 (GIULIANO) COVID-19 Clin Com 07/21/23 16:54 MCV MCH MCHC RDW Plt Count MPV Immature Gran % (Auto) Neut % (Auto) Lymph % (Auto) [place] % (Auto) Eos % (Auto) Baso % (Auto) Lymph # (Auto) [place] # (Auto) Eos # (Auto) Baso # (Auto) Abs Immat Gran (auto) Absolute Neuts (auto) Absolute Nucleated RBC Nucleated RBC % (auto) ESR PT INR Anion Gap Estim Creat Clear Calc Estimated GFR POC Glucose 181 H Random Glucose Lactic Acid Calcium Magnesium Total Bilirubin Direct Bilirubin AST ALT Alkaline Phosphatase C-Reactive Protein Total Protein Albumin Procalcitonin COVID-19 (GIULIANO) COVID-19 Clin Com Assessment and Plan (1) Chronic ulcer of left foot: Status: Acute (2) Left leg DVT: Status: Acute Plan This is a 68-year-old male with pertinent history of factor V leiden deficiency on Coumadin, essential hypertension, insulin-dependent diabetes mellitus, RUBEN on CPAP, history of osteo s/p left great toe amputation, chronic kidney disease who presents to the emergency department for evaluation of left leg redness and swelling found to have ROSALINE and LLE DVT. Chronic left foot ulcer and left leg cellulitis due to DM no evidence of sepsis inflammatory markers are elevated but CT scan not showing evidence of osteomyelitis seen by wound care - see full note for recs will continue IV vanco, levaquin started 07/20 ID consult pending LLE DVT US showing nonocclusive thrombus in the popliteal vein seen by hematology - plan to change to xarelto 15 bid x 21 days then 20 mg daily when INR is 2 or less follow INR coumadin discontinued Factor V leiden deficiency on Coumadin at baseline - plan to change to xarelto when INR 2 or less as above ROSALINE on CKD3 likely due to hypovolemia from recent diarrhea; not r/t sepsis records from [facility] indicate baseline SCr 1.7-1.9 hold HCTZ and valsartan follow renal function Essential hypertension: blood pressure soft hold HCTZ (on chlorthalidone at baseline) and valsartan (irbesartan at baseline) for ROSALINE continue coreg chronic Thrombocytopenia [facility] records indicate platelet level around 60-80 appears to be near baseline Insulin-dependent diabetes mellitus: hold baseline glipizide, metformin On Treseba, nonformulary changed to Lantus Reduce basal insulin while in the hospital FOllow POCs, continue SSI RUBEN: CPAP at bedtime DVT prophylaxis: transitioning from coumadin to xarelto (coumadin stopped, follow INR) Full code attending - dr. eugene Requires ongoing inpatient stay for IV antibiotics, specialist evaluation and close monitoring of renal function and INR Quality Stroke Does the patient have a stroke diagnosis?: No VTE Prior VTE?: No VTE Risk Level:: Medical - moderate - high VTE Device Contraindication: Treatment Not Tolerated VTE Drug Contraindication: N/A - Med Ordered
[2023-07-21] MEDS: levoFLOXacin/D5W 750 MG/150 ML PIGGYBACK 100 MG IV (18:03)
[2023-07-21 20:27] LABS: Glucose, Whole Blood 214 mg/dL (60-115)
[2023-07-21] MEDS: Insulin Glargine,Hum.rec.anlog 100 UNIT/ML 10 ML VIAL 50 UNIT SUBCUT (21:35)
[2023-07-21] MEDS: Atorvastatin Calcium 10 MG TABLET PO (21:35)
[2023-07-21] MEDS: vancomycin HCL 1,250 MG in 0.9 % Sodium Chloride 250 ML 166.67 MG IV (21:43)
[2023-07-22 06:57] LABS: INTERNATIONAL NORM RATIO 2.8 (0.9-1.1); Prothrombin Time 34.3 SEC (11.1-13.3)
[2023-07-22 06:59] LABS: Creatinine Clr Calc Pharmacy 46.3; Estimated Glomerular Filt Rate 24
[2023-07-22 07:12] VITALS: BP 126/58; PULSE 74; RESP 16; TEMP 36.7; O2SAT 96
[2023-07-22 07:28] LABS: Glucose, Whole Blood 142 mg/dL (60-115)
[2023-07-22] MEDS: carvediloL 25 MG TABLET PO ×2 (08:13→20:08)
[2023-07-22] MEDS: 0.9 % Sodium Chloride Flush 3 ML SYRINGE IVFLUSH ×3 (08:14→20:08)
--- NOTE | 2023-07-22 09:59 | P.DS_ITS ---
DS: Providers Provider Date of Service: 07/22/23 Date of admission: 07/20/23 20:09 Primary care physician: EMELYN ANAYA Consults: 07/21/23 05:28 Consult to Wound Care Routine Reason for consultation: ulcer to bottom of left foot 07/21/23 06:07 Consult to Hematology / Oncology Routine Consulting Provider: Mario Olmos Reason for consultation: Venous thrombosis in lower leg despite being on Coumadin 07/21/23 12:10 Consult to Infectious Diseases Routine Consulting Provider: [facility] Infectious Disease Reason for consultation: diabetic foot wound, elevated inflammatory markers, mild cellulitis Has provider been notified: No DS: Diagnosis Discharge Diagnosis (1) Chronic ulcer of left foot: Status: Acute (2) Left leg DVT: Status: Acute DS: Summary Hospital Course Hospital Course: [facility] Complaint: Leg redness and swelling This is a 68-year-old male with pertinent history of factor V leiden deficiency on Coumadin, essential hypertension, insulin-dependent diabetes mellitus, RUBEN on CPAP, history of osteo s/p left great toe apmutation, chronic kidney disease who presents to the emergency department for evaluation of left leg redness and swe lling. Patient states he recently came from a trip from the [facility] and noticed left leg swelling and redness. No pain. Patient states he has a chronic ulcer on the ventral aspect of the left foot which has been draining. No fevers or chills. Denies chest discomfort, palpitations, shortness of breath, abdominal pain, changes in urinary or bowel habits. In the ER, extensive cellulitis seen on the left leg and patient was initiated on IV antibiotics. Imaging concerning for underlying osteomyelitis. Non occlusive thrombus in popliteal vein: Patient is on coumadin for factor V deficiency and still has a venous thrombus in lower leg. Consulting hematology Hospital course: Patient with known DVT of the leg with history of Factor V leiden, he is on coumadin and presente new swelling of the left leg aft a plane trip, INR was 2 .9 at the time of admission and rasied concern of coumadin failure. There was concern about cellulitis of the leg also and has been on Vancomycin and Levaquin and WBC was just 11. For DVT, she was evaluated by Hematology Dr. Olmos with recommendation to change to Xarelto once INR is less than 2, INR is still 2.8 as of today and will hold for the next 2 days Time Attestation Discharge coordination time: Greater than 30 minutes Quality: Safe Use of Opioids Does Pt have an Active Cancer Diagnosis on the Problem List?: No Quality: Stroke Does the patient have a stroke diagnosis?: No Physical Exam Vital Signs: Vital Signs: Last Vital Signs Temp 98.0 F 07/22/23 07:12 Pulse 74 07/22/23 07:12 Resp 16 07/22/23 07:12 BP 126/58 L 07/22/23 07:12 Pulse Ox 96 07/22/23 07:12 O2 Del Method Room Air 07/22/23 07:12 BMI result Body Mass Index 53.8 DS: Data Data Completed and Pending Labs on day of discharge: Laboratory Results - last 24 hr 07/21/23 07/21/23 07/21/23 11:19 16:54 20:10 Hold Purple Top PT INR Creatinine Estim Creat Clear Calc Estimated GFR POC Glucose 217 H 181 H 214 H 07/22/23 07/22/23 07/22/23 05:49 06:37 07:17 Hold Purple Top SEE NOTE PT 34.3 H INR 2.8 H Creatinine 2.67 H Estim Creat Clear Calc 46.3 Estimated GFR 24 POC Glucose 142 H Preliminary micro results at discharge 07/20/23 18:15 Blood Culture - Preliminary Blood - Venous No growth after 24 hours. 07/20/23 17:50 Blood Culture - Preliminary Blood - Venous No growth after 24 hours. Discharge Plan Discharge Anticipated Discharge Date/Time: 07/22/23 09:37 Patient Disposition: Home, Self-Care Discharge Diagnosis: Acute on chronic DVT, Cellulitis of the leg Referrals: EMELYN ANAYA [Primary Care Provider] - 1 Week Discharge Medications: New Xarelto 15 mg tablet 15 mg PO QPM Qty: 30 0RF Rx Instructions: must administer with evening meal Continued carvedilol 25 mg tablet 25 mg PO BID atorvastatin 10 mg tablet 10 mg PO BEDTIME glipizide 10 mg tablet 10 mg PO BID chlorthalidone 25 mg tablet 25 mg PO DAILY metformin 1,000 mg tablet 1,000 mg PO BID irbesartan 300 mg tablet 300 mg PO DAILY insulin lispro [Humalog KwikPen Insulin] 100 unit/mL insulin pen 0 sliding scale dose subcut TIDAC Protocol: Insulin Correction Scale Less than or equal to 110 ---- Give (units): 0 111 to 150 Give (units): 0 151 to 200 Give (units): 2 201 to 250 Give (units): 4 251 to 300 Give (units): 6 301 to 350 Give (units): 8 Greater than 350 Give (units): 10 Call MD if Blood Glucose > : 350 insulin degludec [Tresiba FlexTouch U-100] 100 unit/mL (3 mL) insulin pen 61 unit subcut BEDTIME Discontinued warfarin 10 mg tablet 10 mg PO DAILY@1800 warfarin 2 mg tablet 4 mg PO SUTUWEFR@1800 Rx Instructions: TOTAL DOSE 14 MG ON SUTUWEFR warfarin 2 mg tablet 3 mg PO MOTHSA@1800 Rx Instructions: TOTAL DOSE 13 MG ON MOTHSA Diet: Diabetic diet Activity on Discharge: As tolerated Stand Alone Forms: Patient Portal Discharge page Activity Restrictions/Additional Instructions: Wound care discharge instructions: Continue follow up with out Patient [facility] - continue with [facility]NA services for home care. Maintain blood glucose levels per Providers orders. Left Plantar Foot - Elevate lower leg and off load pressure from bottom of foot. Use specialty shoe per your [employer]. Cleanse with NS, pat dry. Apply skin prep to periwound - lightly pack wound bed with cut strip of Durafiber AG, leave a wick for easy removal. Change Daily while inpatient. Care Plan Goals: DVT prevention treatment of cellulitis of the leg Health Concerns: recurrent dvt celluitis of the leg Plan of Treatment: Stop taking Coumadin, your INR will be check and when the level is below or at 2, start taking Xarelto Take Doxycyline for cellulitis Follow up with your Doctor in a week Assessment: as above
[2023-07-22 11:36] LABS: Glucose, Whole Blood 218 mg/dL (60-115)
[2023-07-22] MEDS: Insulin Lispro 100 UNIT/ML 3 ML VIAL SUBCUT ×3 (12:13→21:16)
[2023-07-22 16:00] VITALS: BP 127/68; PULSE 68; RESP 16; TEMP 36.4; O2SAT 94
--- NOTE | 2023-07-22 16:00 | CA_ITS ---
Transthoracic Echocardiogram Patient (Last, First, Middle): Tomi Simmons, Gender: Male Date of : 1955 Age: 68 Procedure Date: 07/22/2023 Procedure Type: Transthoracic Echocardiogram Location: S3E Height: 180.34 cm Weight: 184.62 kg BSA: 2.85 m2 Heart Rate: bpm BP: 126 / 58 mmHg Ignition Expert: Referring MD: Tirso Harper MD Gamb Cutter: Roque Almanza MD Symptoms: SOB , PE Study Quality: Technically Difficult due to body habitus ECG Rhythm: Sinus Conclusions: - 1. Technically limited study despite use of contrast agent 2. On some views LV ejection fraction appears preserved with LVEF of greater than 50% 3. Right atrial pressures appear to be normal Findings Left Ventricle The left ventricle was not well visualized. Regional wall motion abnormalities can not be excluded due to suboptimal endocardial definition. despite use of contrast agent this is technically limited study and LVEF is greater than 50% Right Ventricle The right ventricle was not well visualized. Atria The left atrium was not well visualized. Interatrial shunt cannot be excluded. The right atrium was not well visualized. Aortic Valve The aortic valve was not well visualized. There is no aortic valve stenosis. Mitral Valve The mitral valve was not well visualized. Pulmonic Valve The pulmonic valve was not well visualized. Tricuspid Valve The tricuspid valve was not well visualized. Tricuspid regurgitation envelope is inadequate for calculation of right ventricular systolic pressure. Normal right atrial pressure. Great Vessels The aorta was not well visualized. The pulmonary artery was not well visualized. Venous The inferior vena cava is normal in size and collapses greater than 50% with inspiration. Pericardium/Pleural The pericardium was not well visualized. Updated in Other Vendor System with Status of Final Roque Almanza MD electronically signed on 08/09/2023 4:18:51 PM with status of Final
[2023-07-22 17:12] LABS: Glucose, Whole Blood 189 mg/dL (60-115)
--- NOTE | 2023-07-22 18:57 | P.PNIM_ITS ---
Subjective Subjective Date of Service: 07/23/23 Interval History: seen and examined this morning follow up for ROSALINE, LLE thrombus, left foot wound no pain, fever or chills Physical Exam 2 Vital Signs: Vital Signs: Last Vital Signs Temp 97.5 F 07/22/23 16:00 Pulse 68 07/22/23 16:00 Resp 16 07/22/23 16:00 BP 127/68 07/22/23 16:00 Pulse Ox 94 07/22/23 16:00 O2 Del Method Room Air 07/22/23 16:00 BMI result Body Mass Index 53.8 Const: General: cooperative, comfortable, no acute distress, alert and awake Nutritional Appearance: obese Orientation/consciousness: patient oriented x3 Resp: Effort & Inspection: normal respiratory effort, able to speak in complete sentences, no respiratory distress and no use of accessory muscles Cardio: Rate: regular rate GI: Inspection: No distended Palpation (GI): nontender Skin: Other: clean ulcer present bottom left foot, no surrounding erythema, scant serous drainage Neuro: General: patient oriented x3, moves all extremities and CN's II-XI intact bilaterally Extrem: General: Yes no pedal edema Objective Data Active Medications Acetaminophen (Acetaminophen 325 Mg Tablet) 650 mg PO Q6H PRN PRN Reason: Pain, Mild (Pain Scale 1-3) Atorvastatin Calcium (Atorvastatin Calcium 10 Mg Tablet) 10 mg PO BEDTIME [facility] Last Admin: 07/21/23 21:35 Dose: 10 mg Documented By: JAZMYN Carvedilol (Carvedilol 25 Mg Tablet) 25 mg PO BID [facility]; Protocol Last Admin: 07/22/23 08:13 Dose: 25 mg Documented By: COTEMA Dextrose (Dextrose 50 % 25 Gm/50 Ml Syringe) 25 gm IVPUSH Q15M PRN; Protocol PRN Reason: per Hypoglycemia Standing Ord. Glucose (Glucose Gel 15 Gm Gel..Gram.) 15 gm PO Q15M PRN; Protocol PRN Reason: per Hypoglycemia Standing Ord. Hydrochlorothiazide (Hydrochlorothiazide 25 Mg Tablet) 25 mg PO DAILY [facility] Insulin Glargine (Insulin Glargine,Hum.Rec.Anlog 100 Unit/Ml 10 Ml Vial) 50 unit SUBCUT BEDTIME [facility] Last Admin: 07/21/23 21:35 Dose: 50 unit Documented By: JAZMYN Insulin Human Lispro (Insulin Lispro 100 Unit/Ml 3 Ml Vial) 0 unit SUBCUT QIDACHS [facility]; Protocol Last Admin: 07/22/23 17:19 Dose: 2 unit Documented By: RACHEL Melatonin (Melatonin 3 Mg Tablet) 6 mg PO BEDTIME PRN PRN Reason: Insomnia Ondansetron HCl (Ondansetron Hcl 4 Mg/2 Ml Vial) 4 mg IVPUSH Q8H PRN PRN Reason: Nausea and Vomiting Pharmacy Consult (Consult Rx Vancomycin Dosing) 1 each MISCELLANE DAILY PRN PRN Reason: Consult order Sodium Chloride (0.9 % Sodium Chloride Flush 3 Ml Syringe) 3 ml IVFLUSH QSHIFT [facility] Last Admin: 07/22/23 17:19 Dose: 3 ml Documented By: RACHEL Valsartan (Valsartan 160 Mg Tablet) 160 mg PO DAILY [facility] Labs 07/21/23 04:51 07/22/23 05:49 Labs: Laboratory Results - last 24 hr 07/21/23 07/22/23 07/22/23 20:10 05:49 06:37 Hold Purple Top SEE NOTE PT 34.3 H INR 2.8 H Estim Creat Clear Calc 46.3 Estimated GFR 24 POC Glucose 214 H 07/22/23 07/22/23 07/22/23 07:17 11:29 17:08 Hold Purple Top PT INR Estim Creat Clear Calc Estimated GFR POC Glucose 142 H 218 H 189 H Microbiology Microbiology Results: Microbiology 07/20/23 18:15 Blood Culture - Preliminary Blood - Venous No growth after 24 hours. 07/20/23 17:50 Blood Culture - Preliminary Blood - Venous No growth after 24 hours. Assessment and Plan (1) Left leg DVT: Status: Acute (2) Chronic ulcer of left foot: Status: Acute Plan This is a 68-year-old male with pertinent history of factor V leiden deficiency on Coumadin, essential hypertension, insulin-dependent diabetes mellitus, RUBEN on CPAP, history of osteo s/p left great toe amputation, chronic kidney disease who presents to the emergency department for evaluation of left leg redness and swelling found to have ROSALINE and LLE DVT. Chronic left foot ulcer and left leg cellulitis due to DM no evidence of sepsis inflammatory markers are elevated but CT scan not showing evidence of osteomyelitis, unable to do MRI d/t size ID recommending treating for Osteo seen by wound care - see full note for recs change Abx per ID recommendation LLE DVT US showing nonocclusive thrombus in the popliteal vein seen by hematology - plan to change to xarelto 15 bid x 21 days then 20 mg daily when INR is 2 or less follow INR coumadin discontinued Factor V leiden deficiency on Coumadin at baseline - plan to change to xarelto when INR 2 or less as above ROSALINE on CKD3 likely due to hypovolemia from recent diarrhea; not r/t sepsis records from [facility] indicate baseline SCr 1.7-1.9 hold HCTZ and valsartan follow renal function Essential hypertension: blood pressure soft hold HCTZ (on chlorthalidone at baseline) and valsartan (irbesartan at baseline) for ROSALINE continue coreg chronic Thrombocytopenia [facility] records indicate platelet level around 60-80 appears to be near baseline Insulin-dependent diabetes mellitus: hold baseline glipizide, metformin On Treseba, nonformulary changed to Lantus Reduce basal insulin while in the hospital FOllow POCs, continue SSI RUBEN: CPAP at bedtime DVT prophylaxis: transitioning from coumadin to xarelto (coumadin stopped, follow INR) Full code attending - dr. eugene Requires ongoing inpatient stay for IV antibiotics, specialist evaluation and close monitoring of renal function and INR Quality Stroke Does the patient have a stroke diagnosis?: No VTE Prior VTE?: No VTE Risk Level:: Medical - moderate - high VTE Device Contraindication: Treatment Not Tolerated VTE Drug Contraindication: N/A - Med Ordered
[2023-07-22] MEDS: Doxycycline Monohydrate 100 MG CAPSULE PO (19:15)
[2023-07-22 19:36] LABS: Vancomycin Random 13.3 mcg/mL (15-20)
[2023-07-22] MEDS: Atorvastatin Calcium 10 MG TABLET PO (20:08)
[2023-07-22 20:57] LABS: Glucose, Whole Blood 207 mg/dL (60-115)
[2023-07-22] MEDS: Insulin Glargine,Hum.rec.anlog 100 UNIT/ML 10 ML VIAL 50 UNIT SUBCUT (21:16)
--- NOTE | 2023-07-22 23:33 | W.PM.IDCN ---
History of Present Illness Data of Consult Service Date: 07/22/23 Requesting physician: Tirso Harper Primary Care Provider: EMELYN ANAYA Reason for consult: left foot wound,plantar He presents to hospital for left foot wound plantar with increased odor. He has been seen by Wound Care. I thought he was discharged as there is full discharge note in chart and I saw him earlier in day but apparently he is still here so will write note. He doesnt seem to have OM on CT scan He has seen Wound Care. He has had longstanding wound left foot. He has chronic renal failure. Review of Systems Review of Systems: Yes all other systems are reviewed and are negative PMFSH Past Medical History Medical History Amputation toe Chronic ulcer of left foot Factor V Leiden Diabetes Functional capacity: uses cane/walker Family History Family history: reviewed and not pertinent Social History Social History Household Members: Children Housing: House Do you presently have visiting nurse or other home services: Yes (vna's 2x week) Unable to assess alcohol history related to: Unknown Alcohol intake: former Patient Tobacco Use Status: Never used Tobacco service: No Meds Allergies Allergy/AdvReac Type Severity Reaction Status Date / Time No Known Allergies Allergy Verified 07/20/23 16:53 Active Medications: Current Medications Acetaminophen (Acetaminophen 325 Mg Tablet) 650 mg PO Q6H PRN PRN Reason: Pain, Mild (Pain Scale 1-3) Atorvastatin Calcium (Atorvastatin Calcium 10 Mg Tablet) 10 mg PO BEDTIME [facility] Last Admin: 07/22/23 20:08 Dose: 10 mg Carvedilol (Carvedilol 25 Mg Tablet) 25 mg PO BID [facility]; Protocol Last Admin: 07/22/23 20:08 Dose: 25 mg Dextrose (Dextrose 50 % 25 Gm/50 Ml Syringe) 25 gm IVPUSH Q15M PRN; Protocol PRN Reason: per Hypoglycemia Standing Ord. Doxycycline Monohydrate (Doxycycline Monohydrate 100 Mg Capsule) 100 mg PO Q12H [facility] Last Admin: 07/22/23 19:15 Dose: 100 mg Glucose (Glucose Gel 15 Gm Gel..Gram.) 15 gm PO Q15M PRN; Protocol PRN Reason: per Hypoglycemia Standing Ord. Hydrochlorothiazide (Hydrochlorothiazide 25 Mg Tablet) 25 mg PO DAILY [facility] Insulin Glargine (Insulin Glargine,Hum.Rec.Anlog 100 Unit/Ml 10 Ml Vial) 50 unit SUBCUT BEDTIME [facility] Last Admin: 07/22/23 21:16 Dose: 50 unit Insulin Human Lispro (Insulin Lispro 100 Unit/Ml 3 Ml Vial) 0 unit SUBCUT QIDACHS [facility]; Protocol Last Admin: 07/22/23 21:16 Dose: 4 unit Melatonin (Melatonin 3 Mg Tablet) 6 mg PO BEDTIME PRN PRN Reason: Insomnia Ondansetron HCl (Ondansetron Hcl 4 Mg/2 Ml Vial) 4 mg IVPUSH Q8H PRN PRN Reason: Nausea and Vomiting Sodium Chloride (0.9 % Sodium Chloride Flush 3 Ml Syringe) 3 ml IVFLUSH QSHIFT [facility] Last Admin: 07/22/23 20:08 Dose: 3 ml Valsartan (Valsartan 160 Mg Tablet) 160 mg PO DAILY [facility] Home Medications Medication Instructions Recorded Confirmed Last Taken Type atorvastatin 10 mg tablet 10 mg PO BEDTIME 07/20/23 07/20/23 07/19/23 History carvedilol 25 mg tablet 25 mg PO BID 07/20/23 07/20/23 07/20/23 History chlorthalidone 25 mg tablet 25 mg PO DAILY 07/20/23 07/20/23 07/20/23 History glipizide 10 mg tablet 10 mg PO BID 07/20/23 07/20/23 07/20/23 History insulin degludec 100 unit/mL (3 61 unit subcut BEDTIME 07/20/23 07/20/23 07/19/23 History mL) subcutaneous pen (Tresiba FlexTouch U-100 insulin) insulin lispro 100 unit/mL 0 sliding scale dose subcut TIDAC 07/20/23 07/20/23 07/20/23 History subcutaneous pen (Humalog KwikPen (U-100) Insulin) irbesartan 300 mg tablet 300 mg PO DAILY 07/20/23 07/20/23 07/20/23 History metformin 1,000 mg tablet 1,000 mg PO BID 07/20/23 07/20/23 07/20/23 History warfarin 10 mg tablet 10 mg PO DAILY@1800 07/20/23 07/20/23 07/19/23 History warfarin 2 mg tablet 3 mg PO MOTHSA@1800 07/20/23 07/20/23 07/18/23 History warfarin 2 mg tablet 4 mg PO SUTUWEFR@1800 07/20/23 07/20/23 07/19/23 History Physical Exam Vital Signs: Vital Signs: Last Vital Signs Temp 97.5 F 07/22/23 16:00 Pulse 68 07/22/23 16:00 Resp 16 07/22/23 16:00 BP 127/68 07/22/23 16:00 Pulse Ox 94 07/22/23 16:00 O2 Del Method Room Air 07/22/23 16:00 BMI result Body Mass Index 53.8 Const: General: cooperative HEENT: Head: Yes normal to inspection Face and sinus: Yes normal facial exam Mouth: Normal oral and palatal mucosa present Teeth and gingiva: dentition normal Eyes: General: appearance normal, both eyes and all related structures Pupils: Equal, round and reactive pupils present Resp: Effort & Inspection: normal respiratory effort Cardio: Rate: regular rate Rhythm: regular rhythm GI: Palpation (GI): Soft to palpation and nontender : General: Yes no CVA tenderness Back/Spine/Pelvis: Back: no CVA tenderness Skin: General skin exam: no rashes or lesions noted Neuro: General: moves all extremities Cranial nerves: Yes Equal, round and reactive pupils present Extrem: Other: left heel bleeding, cellulitis still present but receding General: Yes normal to inspection Psych: Appearance: grossly normal Results Labs 07/21/23 04:51 07/22/23 05:49 Labs: BMP 07/22/23 05:49 Creatinine 2.67 H Microbiology Microbiology Results: Microbiology 07/20/23 18:15 Blood - Venous Blood Culture - Preliminary No growth after 48 hours. 07/20/23 17:50 Blood - Venous Blood Culture - Preliminary No growth after 48 hours. Assessment and Plan (1) Chronic ulcer of left foot: Qualifiers: Non-pressure ulcer stage: with fat layer exposed Qualified Code(s): L97.522 - Non-pressure chronic ulcer of other part of left foot with fat layer exposed Status: Acute It may be worthwhile to treat wound as osteomyelitis as CT scan doesnt disprove this and cant get MRI due to renal failure. He may have staph or strep Plan Would continue antibiotics but consider switch to IV Daptomycin renal dose adjust for six weeks. Weekly creatinine,ESR,CBC Can see outpatient.
[2023-07-22 23:52] VITALS: BP 136/63; PULSE 74; RESP 18; TEMP 36.7; O2SAT 95
[2023-07-23] MEDS: Melatonin 3 MG TABLET 6 MG PO (02:32)
[2023-07-23] MEDS: Doxycycline Monohydrate 100 MG CAPSULE PO (06:18)
[2023-07-23 06:24] LABS: INTERNATIONAL NORM RATIO 2.1 (0.9-1.1); Prothrombin Time 25.3 SEC (11.1-13.3)
[2023-07-23 07:23] VITALS: BP 113/58; PULSE 70; RESP 16; TEMP 36.8; O2SAT 97
[2023-07-23 07:36] LABS: Glucose, Whole Blood 186 mg/dL (60-115)
[2023-07-23] MEDS: Insulin Lispro 100 UNIT/ML 3 ML VIAL SUBCUT ×4 (08:15→20:46)
[2023-07-23] MEDS: 0.9 % Sodium Chloride Flush 3 ML SYRINGE IVFLUSH ×3 (08:16→20:33)
--- NOTE | 2023-07-23 08:53 | HO.PM.IMPN ---
Subjective Subjective Date of Service: 07/23/23 Interval History: f/u on DVT and foot ulcer concern for osteo Physical Exam Vital Signs: Vital Signs: Last Vital Signs Temp 98.2 F 07/23/23 07:23 Pulse 70 07/23/23 07:23 Resp 16 07/23/23 07:23 BP 113/58 L 07/23/23 07:23 Pulse Ox 97 07/23/23 07:23 O2 Del Method Room Air 07/23/23 07:23 BMI result Body Mass Index 53.8 Const: General: cooperative, comfortable, no acute distress, alert and awake Nutritional Appearance: obese Orientation/consciousness: patient oriented x3 HEENT: Head: Yes normal to inspection Face and sinus: Yes normal facial exam Mouth: Normal oral and palatal mucosa present Teeth and gingiva: dentition normal Eyes: General: appearance normal, both eyes and all related structures Pupils: Equal, round and reactive pupils present Resp: Effort & Inspection: normal respiratory effort, able to speak in complete sentences, no respiratory distress and no use of accessory muscles Cardio: Rate: regular rate Rhythm: regular rhythm GI: Inspection: No distended Palpation (GI): Soft to palpation and nontender : General: Yes no CVA tenderness Back/Spine/Pelvis: Back: no CVA tenderness Skin: Other: clean ulcer present bottom left foot, no surrounding erythema, scant serous drainage General skin exam: no rashes or lesions noted Neuro: General: patient oriented x3, moves all extremities and CN's II-XI intact bilaterally Cranial nerves: Yes Equal, round and reactive pupils present Extrem: Other: left heel bleeding, cellulitis still present but receding General: Yes normal to inspection and Yes no pedal edema Psych: Appearance: grossly normal Objective Data Active Medications Acetaminophen (Acetaminophen 325 Mg Tablet) 650 mg PO Q6H PRN PRN Reason: Pain, Mild (Pain Scale 1-3) Atorvastatin Calcium (Atorvastatin Calcium 10 Mg Tablet) 10 mg PO BEDTIME [facility] Last Admin: 07/22/23 20:08 Dose: 10 mg Documented By: MANUEL Carvedilol (Carvedilol 25 Mg Tablet) 25 mg PO BID [facility]; Protocol Last Admin: 07/22/23 20:08 Dose: 25 mg Documented By: MANUEL Dextrose (Dextrose 50 % 25 Gm/50 Ml Syringe) 25 gm IVPUSH Q15M PRN; Protocol PRN Reason: per Hypoglycemia Standing Ord. Glucose (Glucose Gel 15 Gm Gel..Gram.) 15 gm PO Q15M PRN; Protocol PRN Reason: per Hypoglycemia Standing Ord. Hydrochlorothiazide (Hydrochlorothiazide 25 Mg Tablet) 25 mg PO DAILY [facility] Insulin Glargine (Insulin Glargine,Hum.Rec.Anlog 100 Unit/Ml 10 Ml Vial) 50 unit SUBCUT BEDTIME [facility] Last Admin: 07/22/23 21:16 Dose: 50 unit Documented By: MANUEL Insulin Human Lispro (Insulin Lispro 100 Unit/Ml 3 Ml Vial) 0 unit SUBCUT QIDACHS [facility]; Protocol Last Admin: 07/23/23 08:15 Dose: 2 unit Documented By: MATHEW Melatonin (Melatonin 3 Mg Tablet) 6 mg PO BEDTIME PRN PRN Reason: Insomnia Last Admin: 07/23/23 02:32 Dose: 6 mg Documented By: MANUEL Ondansetron HCl (Ondansetron Hcl 4 Mg/2 Ml Vial) 4 mg IVPUSH Q8H PRN PRN Reason: Nausea and Vomiting Sodium Chloride (0.9 % Sodium Chloride Flush 3 Ml Syringe) 3 ml IVFLUSH QSHIFT [facility] Last Admin: 07/23/23 08:16 Dose: 3 ml Documented By: MATHEW Valsartan (Valsartan 160 Mg Tablet) 160 mg PO DAILY [facility] Labs 07/21/23 04:51 07/22/23 05:49 Labs: Laboratory Results - last 24 hr 07/22/23 07/22/23 07/22/23 11:29 17:08 18:57 Hold Purple Top PT INR POC Glucose 218 H 189 H Random Vancomycin 13.3 L 07/22/23 07/23/23 07/23/23 20:50 05:21 07:15 Hold Purple Top SEE NOTE PT 25.3 H D INR 2.1 H POC Glucose 207 H 186 H Random Vancomycin Microbiology Microbiology Results: Microbiology 07/20/23 18:15 Blood Culture - Preliminary Blood - Venous No growth after 48 hours. 07/20/23 17:50 Blood Culture - Preliminary Blood - Venous No growth after 48 hours. Assessment and Plan (1) Left leg DVT: Status: Acute (2) Chronic ulcer of left foot: Status: Acute Plan This is a 68-year-old male with pertinent history of factor V leiden deficiency on Coumadin, essential hypertension, insulin-dependent diabetes mellitus, RUBEN on CPAP, history of osteo s/p left great toe amputation, chronic kidney disease who presents to the emergency department for evaluation of left leg redness and swelling found to have ROSALINE and LLE DVT. Chronic left foot ulcer and left leg cellulitis due to DM no evidence of sepsis inflammatory markers are elevated but CT scan not showing evidence of osteomyelitis, unable to do MRI d/t size ID recommending treating for Osteo and changing to Daptomycin, will need a picc seen by wound care - see full note for recs LLE DVT US showing nonocclusive thrombus in the popliteal vein seen by hematology - plan to change to xarelto 15 bid x 21 days then 20 mg daily when INR is 2 or less, INR is 2.1 follow INR coumadin discontinued Factor V leiden deficiency on Coumadin at baseline - plan to change to xarelto when INR 2 or less as above ROSALINE on CKD3 likely due to hypovolemia from recent diarrhea; not r/t sepsis records from [facility] indicate baseline SCr 1.7-1.9 hold HCTZ and valsartan follow renal function Essential hypertension: blood pressure soft hold HCTZ (on chlorthalidone at baseline) and valsartan (irbesartan at baseline) for ROSALINE continue coreg chronic Thrombocytopenia [facility] records indicate platelet level around 60-80 appears to be near baseline Insulin-dependent diabetes mellitus: hold baseline glipizide, metformin On Treseba, nonformulary changed to Lantus Reduce basal insulin while in the hospital FOllow POCs, continue SSI RUBEN: CPAP at bedtime DVT prophylaxis: transitioning from coumadin to xarelto (coumadin stopped, follow INR) Full code attending - dr. eugene Requires ongoing inpatient stay for IV antibiotics, specialist evaluation and close monitoring of renal function and INR Quality Stroke Does the patient have a stroke diagnosis?: No VTE Prior VTE?: No VTE Risk Level:: Medical - moderate - high VTE Device Contraindication: Treatment Not Tolerated VTE Drug Contraindication: N/A - Med Ordered
[2023-07-23 10:05] VITALS: BP 129/58; PULSE 77
[2023-07-23] MEDS: carvediloL 25 MG TABLET PO ×2 (10:10→20:46)
[2023-07-23 11:32] LABS: Glucose, Whole Blood 236 mg/dL (60-115)
[2023-07-23] MEDS: DAPTOmycin 1,000 MG in 0.9 % Sodium Chloride 50 ML 100 MG IV (12:23)
[2023-07-23 15:38] VITALS: BP 138/65; PULSE 62; RESP 22; TEMP 36.4; O2SAT 97
[2023-07-23 16:23] LABS: Glucose, Whole Blood 192 mg/dL (60-115)
[2023-07-23 20:09] LABS: Glucose, Whole Blood 259 mg/dL (60-115)
[2023-07-23] MEDS: Insulin Glargine,Hum.rec.anlog 100 UNIT/ML 10 ML VIAL 50 UNIT SUBCUT (20:46)
[2023-07-23 21:01] LABS: INTERNATIONAL NORM RATIO 1.8 (0.9-1.1); Prothrombin Time 21.6 SEC (11.1-13.3)
[2023-07-23 23:37] VITALS: BP 130/62; PULSE 70; RESP 18; TEMP 36.4; O2SAT 95
[2023-07-24] MEDS: Melatonin 3 MG TABLET 6 MG PO ×2 (00:04→20:38)
[2023-07-24 06:24] LABS: INTERNATIONAL NORM RATIO 1.7 (0.9-1.1); Prothrombin Time 20.2 SEC (11.1-13.3)
[2023-07-24 08:00] VITALS: BP 133/60; PULSE 98; RESP 18; O2SAT 97
[2023-07-24 08:01] LABS: Glucose, Whole Blood 149 mg/dL (60-115)
[2023-07-24] MEDS: 0.9 % Sodium Chloride Flush 3 ML SYRINGE IVFLUSH ×3 (08:47→20:37)
[2023-07-24] MEDS: carvediloL 25 MG TABLET PO ×2 (08:47→20:38)
[2023-07-24] MEDS: Rivaroxaban 15 MG TABLET PO ×2 (08:47→19:52)
[2023-07-24] MEDS: DAPTOmycin 1,000 MG in 0.9 % Sodium Chloride 50 ML 100 MG IV (08:48)
--- NOTE | 2023-07-24 09:18 | HO.PM.IMPN ---
Subjective Subjective Date of Service: 07/24/23 Interval History: no new issues, no sob, Physical Exam Vital Signs: Vital Signs: Last Vital Signs Temp 97.5 F 07/23/23 23:37 Pulse 98 07/24/23 08:00 Resp 18 07/24/23 08:00 BP 133/60 07/24/23 08:00 Pulse Ox 97 07/24/23 08:00 O2 Del Method Room Air 07/24/23 08:00 BMI result Body Mass Index 53.8 Const: General: cooperative, comfortable, no acute distress, alert and awake Nutritional Appearance: obese Orientation/consciousness: patient oriented x3 HEENT: Head: Yes normal to inspection Face and sinus: Yes normal facial exam Mouth: Normal oral and palatal mucosa present Teeth and gingiva: dentition normal Eyes: General: appearance normal, both eyes and all related structures Pupils: Equal, round and reactive pupils present Resp: Effort & Inspection: normal respiratory effort, able to speak in complete sentences, no respiratory distress and no use of accessory muscles Cardio: Rate: regular rate Rhythm: regular rhythm GI: Inspection: No distended Palpation (GI): Soft to palpation and nontender : General: Yes no CVA tenderness Back/Spine/Pelvis: Back: no CVA tenderness Skin: Other: clean ulcer present bottom left foot, no surrounding erythema, scant serous drainage General skin exam: no rashes or lesions noted Neuro: General: patient oriented x3, moves all extremities and CN's II-XI intact bilaterally Cranial nerves: Yes Equal, round and reactive pupils present Extrem: Other: left heel bleeding, cellulitis still present but receding General: Yes normal to inspection and Yes no pedal edema Psych: Appearance: grossly normal Objective Data Active Medications Acetaminophen (Acetaminophen 325 Mg Tablet) 650 mg PO Q6H PRN PRN Reason: Pain, Mild (Pain Scale 1-3) Carvedilol (Carvedilol 25 Mg Tablet) 25 mg PO BID [facility]; Protocol Last Admin: 07/24/23 08:47 Dose: 25 mg Documented By: MIS Dextrose (Dextrose 50 % 25 Gm/50 Ml Syringe) 25 gm IVPUSH Q15M PRN; Protocol PRN Reason: per Hypoglycemia Standing Ord. Glucose (Glucose Gel 15 Gm Gel..Gram.) 15 gm PO Q15M PRN; Protocol PRN Reason: per Hypoglycemia Standing Ord. Hydrochlorothiazide (Hydrochlorothiazide 25 Mg Tablet) 25 mg PO DAILY [facility] Daptomycin 1,000 mg/ Sodium (Chloride) 70 mls @ 100 mls/hr IV DAILY [facility] Last Admin: 07/24/23 08:48 Dose: 100 mls/hr Documented By: MIS Insulin Glargine (Insulin Glargine,Hum.Rec.Anlog 100 Unit/Ml 10 Ml Vial) 50 unit SUBCUT BEDTIME [facility] Last Admin: 07/23/23 20:46 Dose: 50 unit Documented By: BACILIO Insulin Human Lispro (Insulin Lispro 100 Unit/Ml 3 Ml Vial) 0 unit SUBCUT QIDACHS [facility]; Protocol Last Admin: 07/24/23 08:07 Dose: Not Given Documented By: MIS Non-Admin Reason: No Insulin Coverage Melatonin (Melatonin 3 Mg Tablet) 6 mg PO BEDTIME PRN PRN Reason: Insomnia Last Admin: 07/24/23 00:04 Dose: 6 mg Documented By: BACILIO Ondansetron HCl (Ondansetron Hcl 4 Mg/2 Ml Vial) 4 mg IVPUSH Q8H PRN PRN Reason: Nausea and Vomiting Rivaroxaban (Rivaroxaban 15 Mg Tablet) 15 mg PO DAILY@1700 [facility] Rivaroxaban (Rivaroxaban 15 Mg Tablet) 15 mg PO ONCE [facility] Last Admin: 07/24/23 08:47 Dose: 15 mg Documented By: MIS Sodium Chloride (0.9 % Sodium Chloride Flush 3 Ml Syringe) 3 ml IVFLUSH QSHIFT [facility] Last Admin: 07/24/23 08:47 Dose: 3 ml Documented By: MIS Valsartan (Valsartan 160 Mg Tablet) 160 mg PO DAILY [facility] Labs 07/21/23 04:51 07/22/23 05:49 Labs: Laboratory Results - last 24 hr 07/23/23 07/23/23 07/23/23 11:28 16:18 20:06 Hold Purple Top PT INR POC Glucose 236 H 192 H 259 H 07/23/23 07/24/23 07/24/23 20:46 05:32 07:57 Hold Purple Top SEE NOTE PT 21.6 H 20.2 H INR 1.8 H 1.7 H POC Glucose 149 H Assessment and Plan (1) Left leg DVT: Status: Acute (2) Chronic ulcer of left foot: Status: Acute Plan This is a 68-year-old male with pertinent history of factor V leiden deficiency on Coumadin, essential hypertension, insulin-dependent diabetes mellitus, RUBEN on CPAP, history of osteo s/p left great toe amputation, chronic kidney disease who presents to the emergency department for evaluation of left leg redness and swelling found to have ROSALINE and LLE DVT. Chronic left foot ulcer and left leg cellulitis due to DM no evidence of sepsis inflammatory markers are elevated but CT scan not showing definitive evidence of osteomyelitis, unable to do MRI d/t size ID recommending treating for Osteo and changing to Daptomycin, will need a permacath due to renal failure seen by wound care - see full note for recs LLE DVT US showing nonocclusive thrombus in the popliteal vein seen by hematology - plan to change to xarelto 15 bid x 21 days then 20 mg daily when INR is 2 or less, INR is 1.7 so starting Xarelto today follow INR coumadin discontinued Factor V leiden deficiency, changing coumadin to Xarelto as above ROSALINE on CKD3 likely due to hypovolemia from recent diarrhea; not r/t sepsis records from [facility] indicate baseline SCr 1.7-1.9 follow renal function, hold H Essential hypertension: holding HCTZ and Valsartan due to renal failure, BP is normal chronic Thrombocytopenia [facility] records indicate platelet level around 60-80 appears to be near baseline Insulin-dependent diabetes mellitus: hold baseline glipizide, metformin On Treseba, nonformulary changed to Lantus Reduce basal insulin while in the hospital FOllow POCs, continue SSI RUBEN: CPAP at bedtime DVT prophylaxis: transitioning from coumadin to xarelto (coumadin stopped, follow INR) Full code attending - dr. eugene Requires ongoing inpatient stay for IV antibiotics, specialist evaluation and close monitoring of renal function and INR Quality Stroke Does the patient have a stroke diagnosis?: No VTE Prior VTE?: No VTE Risk Level:: Medical - moderate - high VTE Device Contraindication: Treatment Not Tolerated VTE Drug Contraindication: N/A - Med Ordered
[2023-07-24 10:07] LABS: Anion Gap 14 (12-20); Blood Urea Nitrogen 85 mg/dL (9-16); Calcium 8.7 mg/dL (8.4-10.2); Carbon Dioxide 22 mmol/L (22-29); Chloride 105 mmol/L (96-108); Creatinine Clr Calc Pharmacy 46.8; Estimated Glomerular Filt Rate 24; Glucose Random 168 mg/dL (60-115); Potassium 4.8 mmol/L (3.3-5.1); Sodium 136 mmol/L (135-145)
[2023-07-24 11:06] LABS: Glucose, Whole Blood 232 mg/dL (60-115)
[2023-07-24] MEDS: Insulin Lispro 100 UNIT/ML 3 ML VIAL SUBCUT ×3 (12:10→20:38)
--- NOTE | 2023-07-24 15:42 | HE.PHANOTE ---
XARELTO: INDICATION DVT Oral: 15 mg twice daily with food for 21 days followed by 20 mg once daily with food. FIRST BID DOSE WAS SCHEDULE ON 07/24/23 . TOTAL DURATION OF BID TREATMENT WILL BE 21 DAYS.
[2023-07-24 16:00] VITALS: BP 134/62; PULSE 72; RESP 18; TEMP 36.2; O2SAT 97
[2023-07-24 16:42] LABS: Glucose, Whole Blood 204 mg/dL (60-115)
[2023-07-24 19:26] VITALS: BP 147/68; PULSE 67; RESP 18; TEMP 36.1; O2SAT 95
[2023-07-24 20:04] LABS: Glucose, Whole Blood 232 mg/dL (60-115)
[2023-07-24] MEDS: Acetaminophen 325 MG TABLET 650 MG PO (20:38)
[2023-07-24] MEDS: Insulin Glargine,Hum.rec.anlog 100 UNIT/ML 10 ML VIAL 50 UNIT SUBCUT (20:38)
[2023-07-24 23:23] VITALS: BP 120/58; PULSE 60; RESP 14; TEMP 36.1; O2SAT 95
[2023-07-25 06:37] LABS: INTERNATIONAL NORM RATIO 2.7 (0.9-1.1); Prothrombin Time 32.8 SEC (11.1-13.3)
[2023-07-25 07:12] VITALS: BP 130/64; PULSE 52; RESP 20; TEMP 36; O2SAT 94
[2023-07-25 07:36] LABS: Glucose, Whole Blood 145 mg/dL (60-115)
[2023-07-25] MEDS: carvediloL 25 MG TABLET PO ×2 (08:42→20:59)
[2023-07-25] MEDS: Rivaroxaban 15 MG TABLET PO ×2 (08:42→19:39)
[2023-07-25] MEDS: 0.9 % Sodium Chloride Flush 3 ML SYRINGE IVFLUSH ×3 (08:42→19:39)
[2023-07-25] MEDS: DAPTOmycin 1,000 MG in 0.9 % Sodium Chloride 50 ML 100 MG IV (09:10)
--- NOTE | 2023-07-25 09:17 | HO.PM.IMPN ---
Subjective Subjective Date of Service: 07/25/23 Interval History: f/o on DVT Osteomylitis of the foot no new issues, Physical Exam Vital Signs: Vital Signs: Last Vital Signs Temp 96.8 F 07/25/23 07:12 Pulse 52 07/25/23 07:12 Resp 20 07/25/23 07:12 BP 130/64 07/25/23 07:12 Pulse Ox 94 07/25/23 07:12 O2 Del Method Room Air 07/25/23 07:12 BMI result Body Mass Index 53.8 Const: General: cooperative, comfortable, no acute distress, alert and awake Nutritional Appearance: obese Orientation/consciousness: patient oriented x3 HEENT: Head: Yes normal to inspection Face and sinus: Yes normal facial exam Mouth: Normal oral and palatal mucosa present Teeth and gingiva: dentition normal Eyes: General: appearance normal, both eyes and all related structures Pupils: Equal, round and reactive pupils present Resp: Effort & Inspection: normal respiratory effort, able to speak in complete sentences, no respiratory distress and no use of accessory muscles Cardio: Rate: regular rate Rhythm: regular rhythm GI: Inspection: No distended Palpation (GI): Soft to palpation and nontender : General: Yes no CVA tenderness Back/Spine/Pelvis: Back: no CVA tenderness Skin: Other: clean ulcer present bottom left foot, no surrounding erythema, scant serous drainage General skin exam: no rashes or lesions noted Neuro: General: patient oriented x3, moves all extremities and CN's II-XI intact bilaterally Cranial nerves: Yes Equal, round and reactive pupils present Extrem: Other: left heel bleeding, cellulitis still present but receding General: Yes normal to inspection and Yes no pedal edema Psych: Appearance: grossly normal Objective Data Active Medications Acetaminophen (Acetaminophen 325 Mg Tablet) 650 mg PO Q6H PRN PRN Reason: Pain, Mild (Pain Scale 1-3) Last Admin: 07/24/23 20:38 Dose: 650 mg Documented By: JOANNE Carvedilol (Carvedilol 25 Mg Tablet) 25 mg PO BID [facility]; Protocol Last Admin: 07/25/23 08:42 Dose: 25 mg Documented By: ELENA Dextrose (Dextrose 50 % 25 Gm/50 Ml Syringe) 25 gm IVPUSH Q15M PRN; Protocol PRN Reason: per Hypoglycemia Standing Ord. Glucose (Glucose Gel 15 Gm Gel..Gram.) 15 gm PO Q15M PRN; Protocol PRN Reason: per Hypoglycemia Standing Ord. Hydrochlorothiazide (Hydrochlorothiazide 25 Mg Tablet) 25 mg PO DAILY [facility] Daptomycin 1,000 mg/ Sodium (Chloride) 70 mls @ 100 mls/hr IV DAILY [facility] Last Admin: 07/25/23 09:10 Dose: 100 mls/hr Documented By: ELENA Insulin Glargine (Insulin Glargine,Hum.Rec.Anlog 100 Unit/Ml 10 Ml Vial) 50 unit SUBCUT BEDTIME [facility] Last Admin: 07/24/23 20:38 Dose: 50 unit Documented By: JOANNE Insulin Human Lispro (Insulin Lispro 100 Unit/Ml 3 Ml Vial) 0 unit SUBCUT QIDACHS [facility]; Protocol Last Admin: 07/25/23 08:37 Dose: Not Given Documented By: ELENA Non-Admin Reason: No Insulin Coverage Melatonin (Melatonin 3 Mg Tablet) 6 mg PO BEDTIME PRN PRN Reason: Insomnia Last Admin: 07/24/23 20:38 Dose: 6 mg Documented By: JOANNE Ondansetron HCl (Ondansetron Hcl 4 Mg/2 Ml Vial) 4 mg IVPUSH Q8H PRN PRN Reason: Nausea and Vomiting Rivaroxaban (Rivaroxaban 15 Mg Tablet) 15 mg PO ONCE [facility] Last Admin: 07/25/23 08:42 Dose: 15 mg Documented By: ELENA Rivaroxaban (Rivaroxaban 15 Mg Tablet) 15 mg PO BID@0800,2000 [facility] Stop: 08/13/23 20:01 Last Admin: 07/25/23 08:42 Dose: 15 mg Documented By: ELENA Sodium Chloride (0.9 % Sodium Chloride Flush 3 Ml Syringe) [facility] Last Admin: 07/25/23 08:42 Dose: 3 ml Documented By: ELENA Valsartan (Valsartan 160 Mg Tablet) 160 mg PO DAILY [facility] Labs 07/21/23 04:51 07/24/23 05:32 Labs: Laboratory Results - last 24 hr 07/24/23 07/24/23 07/24/23 05:32 11:01 16:39 Hold Purple Top PT INR Anion Gap 14 Estim Creat Clear Calc 46.8 Estimated GFR 24 POC Glucose 232 H 204 H Random Glucose 168 H Calcium 8.7 D 07/24/23 07/25/23 07/25/23 20:01 05:10 07:10 Hold Purple Top SEE NOTE PT 32.8 H D INR 2.7 H Anion Gap Estim Creat Clear Calc Estimated GFR POC Glucose 232 H 145 H Random Glucose Calcium Assessment and Plan (1) Left leg DVT: Status: Acute (2) Chronic ulcer of left foot: Status: Acute Plan This is a 68-year-old male with pertinent history of factor V leiden deficiency on Coumadin, essential hypertension, insulin-dependent diabetes mellitus, RUBEN on CPAP, history of osteo s/p left great toe amputation, chronic kidney disease who presents to the emergency department for evaluation of left leg redness and swelling found to have ROSALINE and LLE DVT. Chronic left foot ulcer and left leg cellulitis due to DM, no sepsis but elevated CRP, CT no definitive osteo, not able to fit in MRI, ID recommend treating for osteo x 6 weeks with Daptomycin started on 07/23. Requesting Barnard catheter given CKD. Seen by wound care see their note LLE DVT/know Factor V Leiden--US showing nonocclusive thrombus in the popliteal vein, this happened while INR therapeutic. Hematology recommends changing to Xarelto once INR < or = 2, presently on 15 mg bid x 21 (started 07/24), followed by 15 mg daily ROSALINE on CKD3, d/t dehydration from diarrhea, baseline Cr 1.7 to 1.9, ROSALINE component resolved. Essential hypertension: BP has been normal with Valsartan and HCTZ been hold, will restart Chronic Thrombocytopenia-- [facility] records indicate platelet level around 60-80 appears to be near baseline Insulin-dependent diabetes mellitus: hold baseline glipizide, metformin On Treseba, nonformulary changed to Lantus Reduced basal insulin while in the hospital FOllow POCs, continue SSI RUBEN: CPAP at bedtime DVT prophylaxis: Xarelto Full code need for inpt: awaiting Barnard cather for [facility] Abx Quality Stroke Does the patient have a stroke diagnosis?: No VTE Prior VTE?: No VTE Risk Level:: Medical - moderate - high VTE Device Contraindication: Treatment Not Tolerated VTE Drug Contraindication: N/A - Med Ordered
[2023-07-25 11:44] LABS: Glucose, Whole Blood 208 mg/dL (60-115)
--- NOTE | 2023-07-25 11:56 | HO.RADPN ---
RADIOLOGY Narrative Narrative: Procedure Note: Right IJ Dual lumen Barnard placed using US and Fluoro. Tip in cavoatrial junction. Ok for use. Catheter length 29 cm. No immediate complications Full dictation to follow Iker ROACH
[2023-07-25] MEDS: Insulin Lispro 100 UNIT/ML 3 ML VIAL SUBCUT ×3 (12:29→20:59)
--- NOTE | 2023-07-25 13:32 | MHC.CM.PN ---
per rounds pt getting a levi today pt going home with lt iv antibiotics referral to [facility] pt active with [facility]
[2023-07-25 15:10] VITALS: BP 148/73; PULSE 66; RESP 20; TEMP 36; O2SAT 94
[2023-07-25 16:30] LABS: Glucose, Whole Blood 215 mg/dL (60-115)
[2023-07-25 20:05] LABS: Glucose, Whole Blood 244 mg/dL (60-115)
[2023-07-25] MEDS: Insulin Glargine,Hum.rec.anlog 100 UNIT/ML 10 ML VIAL 50 UNIT SUBCUT (20:59)
[2023-07-25 21:33] VITALS: PULSE 68; O2SAT 98
[2023-07-25 23:14] VITALS: BP 139/70; PULSE 74; RESP 18; TEMP 36.6; O2SAT 94
[2023-07-25] MEDS: Heparin Sodium,Porcine Flush 50 UNITS, 0.9 % Sodium Chloride Flush 5 ML IVFLUSH (23:29)
[2023-07-26] MEDS: Melatonin 3 MG TABLET 6 MG PO (00:36)
--- NOTE | 2023-07-26 02:03 | PC.NURSE ---
pt independently walking to the BR to urinated and using the urinal, night snacks provided. angelic. leg cellulitis changed the color red to discoloration. not much warm, feels normal, no drainage. DM foot dressing is clean and intact. willl cont. monitor any other changes.
[2023-07-26 07:47] LABS: Glucose, Whole Blood 174 mg/dL (60-115)
[2023-07-26] MEDS: carvediloL 25 MG TABLET PO ×2 (07:56→20:42)
[2023-07-26] MEDS: Insulin Lispro 100 UNIT/ML 3 ML VIAL SUBCUT ×4 (07:57→20:42)
[2023-07-26] MEDS: Rivaroxaban 15 MG TABLET PO ×2 (07:57→19:45)
[2023-07-26] MEDS: Heparin Sodium,Porcine Flush 50 UNITS, 0.9 % Sodium Chloride Flush 5 ML IVFLUSH ×3 (07:57→23:44)
[2023-07-26 08:00] VITALS: BP 166/80; PULSE 63; RESP 18; TEMP 36.2; O2SAT 96
[2023-07-26] MEDS: DAPTOmycin 1,000 MG in 0.9 % Sodium Chloride 50 ML 100 MG IV (08:26)
[2023-07-26] MEDS: 0.9 % Sodium Chloride Flush 3 ML SYRINGE IVFLUSH ×2 (08:27→17:03)
[2023-07-26 11:10] LABS: Glucose, Whole Blood 222 mg/dL (60-115)
--- NOTE | 2023-07-26 12:40 | HO.WOUND ---
Addendum entered by Jovita Bird RN 07/26/23 12:57: Left Foot Wound - Plantar Original Note: Wound Consult: Follow Up 68yr old male admitted to [facility] [place] on?07/20/23 20:09 - See progress notes and H&P for detailed history. Pt follows closely with Outpt Wound Clinic - Pt reports he goes to clinic every tuesday and has VNA services to his home Tuesday and Wednesdays. Recommend continued follow up at time of D/C - appears to have scheduled appt for 07/29/23 per chart review and discussion with pt. Right Plantar 07/21/23 Right Plantar 07/25/13 - Bulla intact Right Plantar 07/26/23 - Ruptured Bulla Right Plantar Foot Etiology:Diabetic Foot Wound Measurements: 0.8cm x 0.8cm x 2cm tunnleing at 9 o'clock 7cm Wound Bed: moist tissue with yellow white fibrinous slough Drainage / Odor: Moderate amount of serous yellow drainage on dressing - no odor Edges: ? macerated callused Cris wound: ?pink blanchable tissue there is an area of epidermal lifting creating a a pocket for serous fluid collection No Induration, No Fluctuance, No Warmth Pain: Reports neuropathy Goals of Treatment: ? Durafiber AG for moisture management - Follow up with Outpt wound clinic and [employer] for nail maintenance Recommendations: 1. Turn and Reposition every 2 hours and as needed for patient comfort consider use of wedges available in the storeroom. 2. Off Load all bony prominences with use of pillows, wedges and heel boots. 3. Monitor for incontinence and moisture control. 4. Provide adequate and supplemental nutrition. 5. Order low air loss mattress. 6. Maintain blood glucose levels per Providers orders. 7. Left Plantar Foot - Elevate lower leg and off load pressure from bottom of foot. Cleanse with NS, pat dry. Apply skin prep to periwound - lightly pack wound bed with cut strip of Durafiber AG, leave a wick for easy removal. Change Daily while inpatient. Follow up outpt Wound Clinic and [employer] for nail maintenance.
[2023-07-26 13:18] VITALS: BP 166/80; PULSE 63; O2SAT 96
--- NOTE | 2023-07-26 14:10 | P.PNIM_ITS ---
Subjective Subjective Date of Service: 07/26/23 Interval History: dvt ,foot cellulitis Review of Systems leg pain and erythema seems improving no fever Physical Exam 2 Vital Signs: Vital Signs: Last Vital Signs Temp 97.2 F 07/26/23 08:00 Pulse 63 07/26/23 08:00 Resp 18 07/26/23 08:00 BP 166/80 H 07/26/23 08:00 Pulse Ox 96 07/26/23 08:00 O2 Del Method Room Air 07/26/23 08:00 BMI result Body Mass Index 53.8 Appearance: Alert.? Oriented X3.? . cvs: rrr, [id number] , no murmur res: clear to auscultation ,no rhonchii or wheezing abd: no rebound or guarding ,nt, bs present. ext pulses present left lower ext erythema improving neuro: moves all extermities . Objective Data Active Medications Acetaminophen (Acetaminophen 325 Mg Tablet) 650 mg PO Q6H PRN PRN Reason: Pain, Mild (Pain Scale 1-3) Last Admin: 07/24/23 20:38 Dose: 650 mg Documented By: JOANNE Carvedilol (Carvedilol 25 Mg Tablet) 25 mg PO BID [facility]; Protocol Last Admin: 07/26/23 07:56 Dose: 25 mg Documented By: ELENA Heparin Sodium (Porcine) 50 (units/ Sodium Chloride 5 ml) 0 units IVFLUSH QSHIFT [facility] Last Admin: 07/26/23 07:57 Dose: 50 unit Documented By: ELENA Dextrose (Dextrose 50 % 25 Gm/50 Ml Syringe) 25 gm IVPUSH Q15M PRN; Protocol PRN Reason: per Hypoglycemia Standing Ord. Glucose (Glucose Gel 15 Gm Gel..Gram.) 15 gm PO Q15M PRN; Protocol PRN Reason: per Hypoglycemia Standing Ord. Daptomycin 1,000 mg/ Sodium (Chloride) 70 mls @ 100 mls/hr IV DAILY [facility] Last Infusion: 07/26/23 09:19 Dose: Infused Documented By: ELENA Insulin Glargine (Insulin Glargine,Hum.Rec.Anlog 100 Unit/Ml 10 Ml Vial) 50 unit SUBCUT BEDTIME [facility] Last Admin: 07/25/23 20:59 Dose: 50 unit Documented By: JOANNE Insulin Human Lispro (Insulin Lispro 100 Unit/Ml 3 Ml Vial) 0 unit SUBCUT QIDACHS [facility]; Protocol Last Admin: 07/26/23 11:45 Dose: 4 unit Documented By: ELENA Melatonin (Melatonin 3 Mg Tablet) 6 mg PO BEDTIME PRN PRN Reason: Insomnia Last Admin: 07/26/23 00:36 Dose: 6 mg Documented By: JOANNE Ondansetron HCl (Ondansetron Hcl 4 Mg/2 Ml Vial) 4 mg IVPUSH Q8H PRN PRN Reason: Nausea and Vomiting Rivaroxaban (Rivaroxaban 15 Mg Tablet) 15 mg PO BID@0800,1999 [facility] Stop: 08/13/23 20:01 Last Admin: 07/26/23 07:57 Dose: 15 mg Documented By: ELENA Sodium Chloride (0.9 % Sodium Chloride Flush 3 Ml Syringe) 3 ml IVFLUSH [facility] Last Admin: 07/26/23 08:27 Dose: 3 ml Documented By: ELENA Labs 07/21/23 04:51 07/24/23 05:32 Labs: Laboratory Results - last 24 hr 07/25/23 07/25/23 07/26/23 16:01 19:54 07:31 POC Glucose 215 H 244 H 174 H Total Creatine Kinase 07/26/23 07/26/23 10:55 12:03 POC Glucose 222 H Total Creatine Kinase 92 Microbiology Microbiology Results: Microbiology 07/20/23 18:15 Blood Culture - Final Blood - Venous No growth after 5 days. 07/20/23 17:50 Blood Culture - Final Blood - Venous No growth after 5 days. Assessment and Plan (1) Left leg DVT: Status: Acute (2) Cellulitis: Status: Acute Plan 68-year-old male with pertinent history of factor V leiden deficiency on Coumadin, essential hypertension, insulin-dependent diabetes mellitus, RUBEN on CPAP, history of osteo s/p left great toe amputation, chronic kidney disease who presents to the emergency department for evaluation of left leg redness and swelling found to have ROSALINE and LLE DVT. Chronic left foot ulcer and left leg cellulitis due to DM, no sepsis but elevated CRP, CT no definitive osteo, not able to fit in MRI, ID recommend treating for osteo x 6 weeks with Daptomycin started on 07/23. Requesting Barnard catheter given CKD. wound care see their note has Placement of a tunneled dual-lumen Barnard catheter on 07/25. LLE DVT/know Factor V Leiden--US showing nonocclusive thrombus in the popliteal vein, this happened while INR therapeutic. Hematology recommends changing to Xarelto -currently on 15 mg bid x 21 (started 07/24), followed by 15 mg daily ROSALINE on CKD3, d/t dehydration from diarrhea, baseline Cr 1.7 to 1.9 bun/cr pending encouraged for po intake and free water intake. nephro eval-patient follows up with Rtane. Essential hypertension: BP has been normal with Valsartan and HCTZ been hold. Chronic Thrombocytopenia--[facility] records indicate platelet level around 60-80 appears to be near baseline Insulin-dependent diabetes mellitus: hold baseline glipizide, metformin On Treseba, nonformulary changed to Lantus Reduced basal insulin while in the hospital FOllow POCs, continue SSI RUBEN: CPAP at bedtime DVT prophylaxis: Xarelto Full code need for inpt: [facility]ard cather for [facility] Abx Quality Stroke Does the patient have a stroke diagnosis?: No VTE Prior VTE?: No VTE Risk Level:: Medical - moderate - high VTE Device Contraindication: Treatment Not Tolerated VTE Drug Contraindication: N/A - Med Ordered
[2023-07-26 14:36] LABS: Blood Urea Nitrogen 68 mg/dL (9-16); Estimated Glomerular Filt Rate 35
[2023-07-26 15:56] VITALS: BP 146/80; PULSE 63; RESP 16; TEMP 36.3; O2SAT 98
[2023-07-26 16:06] LABS: Glucose, Whole Blood 213 mg/dL (60-115)
[2023-07-26 19:03] VITALS: BP 150/74; PULSE 66; RESP 16; TEMP 36.4; O2SAT 100
--- NOTE | 2023-07-26 19:30 | PM.CNNEP ---
History of Present Illness Reason for Consult Consult date: 07/26/23 Chief Complaint Chief complaint: leg infection History of Present Illness Narrative: RTANE consulted for ROSALINE on CKD 3b followed By RTANE ( Dr Quintero ) with BSL SCr 1.6-1.9 now with SCr 2.6 Case d/w Dr Morse in detail and agree with his ongoing management Will f/u with full renal consut Review of Systems Review of Systems leg pain and erythema seems improving no fever Yes all other systems are reviewed and are negative Constitutional: Reports no additional constitutional complaints, Denies chills, Denies fever(s), Reports weakness and Reports weight loss Eyes: Reports no additional eye complaints Reports system reviewed and no additional complaints, except as documented Cardiovascular: Reports no additional cardiovascular complaints, Denies chest pain, Denies palpitations and Denies dyspnea Respiratory: Reports no additional respiratory complaints, Denies cough and Denies dyspnea Gastrointestinal: Reports no additional gastrointestinal complaints and Denies abdominal pain Genitourinary: Reports no additional male genitourinary complaints Musculoskeletal: Reports no additional musculoskeletal complaints Skin/Breast: Reports system reviewed and no additional complaints, except as docu Reports system reviewed and no additional complaints, except as documented and Reports weakness Psychiatric: Reports no additional psychiatric complaints Endocrine: Reports no additional endocrine complaints and Denies palpitations Hematologic/Lymphatic: Reports no additional hematologic/lymphatic complaints Allergic/Immunologic: Reports no additional allergic/immunologic complaints PMFSH Past Medical History Medical History Amputation toe Chronic ulcer of left foot Factor V Leiden Diabetes Functional capacity: uses cane/walker Family History Pertinent family history: No family history of early CAD Family history: reviewed and not pertinent Social History Social History Household Members: Children Housing: House Do you presently have visiting nurse or other home services: Yes (vna's 2x week) Unable to assess alcohol history related to: Unknown Alcohol intake: former Patient Tobacco Use Status: Never used Tobacco service: No Meds Allergies Allergy/AdvReac Type Severity Reaction Status Date / Time No Known Allergies Allergy Verified 07/20/23 16:53 Active Medications: Current Medications Acetaminophen (Acetaminophen 325 Mg Tablet) 650 mg PO Q6H PRN PRN Reason: Pain, Mild (Pain Scale 1-3) Last Admin: 07/24/23 20:38 Dose: 650 mg Carvedilol (Carvedilol 25 Mg Tablet) 25 mg PO BID [facility]; Protocol Last Admin: 07/26/23 07:56 Dose: 25 mg Heparin Sodium (Porcine) 50 (units/ Sodium Chloride 5 ml) [facility] Last Admin: 07/26/23 16:58 Dose: 50 unit Dextrose (Dextrose 50 % 25 Gm/50 Ml Syringe) 25 gm IVPUSH Q15M PRN; Protocol PRN Reason: per Hypoglycemia Standing Ord. Glucose (Glucose Gel 15 Gm Gel..Gram.) 15 gm PO Q15M PRN; Protocol PRN Reason: per Hypoglycemia Standing Ord. Daptomycin 1,000 mg/ Sodium (Chloride) 70 mls @ 100 mls/hr IV DAILY [facility] Last Infusion: 07/26/23 09:19 Dose: Infused Insulin Glargine (Insulin Glargine,Hum.Rec.Anlog 100 Unit/Ml 10 Ml Vial) 50 unit SUBCUT BEDTIME [facility] Last Admin: 07/25/23 20:59 Dose: 50 unit Insulin Human Lispro (Insulin Lispro 100 Unit/Ml 3 Ml Vial) 0 unit SUBCUT QIDACHS [facility]; Protocol Last Admin: 07/26/23 16:58 Dose: 4 unit Melatonin (Melatonin 3 Mg Tablet) 6 mg PO BEDTIME PRN PRN Reason: Insomnia Last Admin: 07/26/23 00:36 Dose: 6 mg Ondansetron HCl (Ondansetron Hcl 4 Mg/2 Ml Vial) 4 mg IVPUSH Q8H PRN PRN Reason: Nausea and Vomiting Rivaroxaban (Rivaroxaban 15 Mg Tablet) 15 mg PO BID@0800,2000 [facility] Stop: 08/13/23 20:01 Last Admin: 07/26/23 07:57 Dose: 15 mg Sodium Chloride (0.9 % Sodium Chloride Flush 3 Ml Syringe) [facility] Last Admin: 07/26/23 17:03 Dose: 3 ml Home Medications Medication Instructions Recorded Confirmed Last Taken Type atorvastatin 10 mg tablet 10 mg PO BEDTIME 07/20/23 07/20/23 07/19/23 History carvedilol 25 mg tablet 25 mg PO BID 07/20/23 07/20/23 07/20/23 History chlorthalidone 25 mg tablet 25 mg PO DAILY 07/20/23 07/20/23 07/20/23 History glipizide 10 mg tablet 10 mg PO BID 07/20/23 07/20/23 07/20/23 History insulin degludec 100 unit/mL (3 61 unit subcut BEDTIME 07/20/23 07/20/23 07/19/23 History mL) subcutaneous pen (Tresiba FlexTouch U-100 insulin) insulin lispro 100 unit/mL 0 sliding scale dose subcut TIDAC 07/20/23 07/20/23 07/20/23 History subcutaneous pen (Humalog KwikPen (U-100) Insulin) irbesartan 300 mg tablet 300 mg PO DAILY 07/20/23 07/20/23 07/20/23 History metformin 1,000 mg tablet 1,000 mg PO BID 07/20/23 07/20/23 07/20/23 History warfarin 10 mg tablet 10 mg PO DAILY@1800 07/20/23 07/20/23 07/19/23 History warfarin 2 mg tablet 3 mg PO MOTHSA@1800 07/20/23 07/20/23 07/18/23 History warfarin 2 mg tablet 4 mg PO SUTUWEFR@1800 07/20/23 07/20/23 07/19/23 History Physical Exam Vital Signs: Last Vital Signs Temp 97.5 F 07/26/23 19:03 Pulse 66 07/26/23 19:03 Resp 16 07/26/23 19:03 BP 150/74 H 07/26/23 19:03 Pulse Ox 100 07/26/23 19:03 O2 Del Method Room Air 07/26/23 19:03 BMI result Body Mass Index 53.8 Const General: cooperative, comfortable, no acute distress, alert and awake Nutritional Appearance: obese Orientation/consciousness: patient oriented x3 HEENT Head: Yes normal to inspection Face and sinus: Yes normal facial exam Mouth: Normal oral and palatal mucosa present Teeth and gingiva: dentition normal Eyes General: appearance normal, both eyes and all related structures Pupils: Equal, round and reactive pupils present Resp Effort & Inspection: normal respiratory effort, able to speak in complete sentences, no respiratory distress and no use of accessory muscles Cardio Rate: regular rate Rhythm: regular rhythm GI Inspection: No distended Palpation (GI): Soft to palpation and nontender General: Yes no CVA tenderness Back/Spine/Pelvis Back: no CVA tenderness Skin Other: clean ulcer present bottom left foot, no surrounding erythema, scant serous drainage General skin exam: no rashes or lesions noted Neuro General: patient oriented x3, moves all extremities and CN's II-XI intact bilaterally Cranial nerves: Yes Equal, round and reactive pupils present Extrem Other: left heel bleeding, cellulitis still present but receding General: Yes normal to inspection and Yes no pedal edema Psych Appearance: grossly normal Results Lab Results 07/21/23 04:51 07/26/23 14:01 Lab results: Chemistry 07/24/23 07/26/23 05:32 14:01 Sodium 136 Potassium 4.8 Carbon Dioxide 22 BUN 85 H 68 H Creatinine 2.64 H 1.93 H Calcium 8.7 D Assessment and Plan (1) Left leg DVT: Status: Acute (2) Cellulitis: Qualifiers: Laterality: left Site of cellulitis: extremity Site of cellulitis of extremity: lower extremity Qualified Code(s): L03.116 - Cellulitis of left lower limb Status: Acute Plan 68-year-old male with pertinent history of factor V leiden deficiency on Coumadin, essential hypertension, insulin-dependent diabetes mellitus, RUBEN on CPAP, history of osteo s/p left great toe amputation, chronic kidney disease who presents to the emergency department for evaluation of left leg redness and swelling found to have ROSALINE and LLE DVT. Chronic left foot ulcer and left leg cellulitis due to DM, no sepsis but elevated CRP, CT no definitive osteo, not able to fit in MRI, ID recommend treating for osteo x 6 weeks with Daptomycin started on 07/23. Requesting Barnard catheter given CKD. wound care see their note has Placement of a tunneled dual-lumen Barnard catheter on 07/25. LLE DVT/know Factor V Leiden--US showing nonocclusive thrombus in the popliteal vein, this happened while INR therapeutic. Hematology recommends changing to Xarelto -currently on 15 mg bid x 21 (started 07/24), followed by 15 mg daily ROSALINE on CKD3, d/t dehydration from diarrhea, baseline Cr 1.7 to 1.9 bun/cr pending encouraged for po intake and free water intake. nephro eval-patient follows up with Rtane. Essential hypertension: BP has been normal with Valsartan and HCTZ been hold. Chronic Thrombocytopenia--[facility] [place] [facility] records indicate platelet level around 60-80 appears to be near baseline Insulin-dependent diabetes mellitus: hold baseline glipizide, metformin On Treseba, nonformulary changed to Lantus Reduced basal insulin while in the hospital FOllow POCs, continue SSI RUBEN: CPAP at bedtime DVT prophylaxis: [place]er[place]án Full code need for inpt: Akil sosa for awaiting custodial Abx Procedures Date of Service Date of Service: 07/26/23
[2023-07-26 19:54] LABS: Glucose, Whole Blood 291 mg/dL (60-115)
[2023-07-26] MEDS: Insulin Glargine,Hum.rec.anlog 100 UNIT/ML 10 ML VIAL 50 UNIT SUBCUT (20:43)
[2023-07-26 21:24] VITALS: PULSE 57; RESP 16; O2SAT 96
[2023-07-26 23:30] VITALS: BP 145/66; PULSE 78; RESP 18; TEMP 36; O2SAT 96
[2023-07-27] MEDS: 0.9 % Sodium Chloride Flush 3 ML SYRINGE IVFLUSH (00:08)
[2023-07-27 07:24] VITALS: BP 148/69; PULSE 55; RESP 18; TEMP 36.1; O2SAT 95
[2023-07-27 07:39] LABS: Glucose, Whole Blood 158 mg/dL (60-115)
[2023-07-27] MEDS: Insulin Lispro 100 UNIT/ML 3 ML VIAL SUBCUT ×2 (07:51→11:41)
[2023-07-27] MEDS: Rivaroxaban 15 MG TABLET PO (07:51)
[2023-07-27] MEDS: Heparin Sodium,Porcine Flush 50 UNITS, 0.9 % Sodium Chloride Flush 5 ML IVFLUSH (07:51)
[2023-07-27] MEDS: carvediloL 25 MG TABLET PO (07:56)
[2023-07-27 07:59] VITALS: PULSE 68
--- NOTE | 2023-07-27 09:21 | PM.CNNEP ---
History of Present Illness Reason for Consult Consult date: 07/27/23 Chief Complaint Chief complaint: leg infection History of Present Illness Narrative: [facility] Consulted for ROSALINE on CKD in setting of diabetic foot infection In summary 68-year-old male CKD 3b ( SCr 1.6-1.9 ) Dr Quintero outpt Renal doc ( [facility]) h/o of factor V leiden deficiency on Coumadin, essential hypertension, insulin-dependent diabetes mellitus, RUBEN on CPAP, history of osteo s/p left great toe amputation presents to the emergency department for evaluation of left leg redness and swelling found to have ROSALINE and LLE DVT. W/U reveas Chronic left foot ulcer and left leg cellulitis due to DM, no sepsis but elevated CRP, CT no definitive osteo, not able to fit in MRI, ID recommend treating for osteo x 6 weeks with Daptomycin started on 07/23. and s/p Barnard catheter Overall doing better with Scr 2.6--> 1.9 as of 07/26 Review of Systems Review of Systems leg pain and erythema seems improving no fever Yes all other systems are reviewed and are negative Constitutional: Reports no additional constitutional complaints, Denies chills, Denies fever(s), Reports weakness and Reports weight loss Eyes: Reports no additional eye complaints Reports system reviewed and no additional complaints, except as documented Cardiovascular: Reports no additional cardiovascular complaints, Denies chest pain, Denies palpitations and Denies dyspnea Respiratory: Reports no additional respiratory complaints, Denies cough and Denies dyspnea Gastrointestinal: Reports no additional gastrointestinal complaints and Denies abdominal pain Genitourinary: Reports no additional male genitourinary complaints Musculoskeletal: Reports no additional musculoskeletal complaints Skin/Breast: Reports system reviewed and no additional complaints, except as docu Reports system reviewed and no additional complaints, except as documented and Reports weakness Psychiatric: Reports no additional psychiatric complaints Endocrine: Reports no additional endocrine complaints and Denies palpitations Hematologic/Lymphatic: Reports no additional hematologic/lymphatic complaints Allergic/Immunologic: Reports no additional allergic/immunologic complaints PMFSH Past Medical History Medical History Amputation toe Chronic ulcer of left foot Factor V Leiden Diabetes Functional capacity: uses cane/walker Family History Pertinent family history: No family history of early CAD Family history: reviewed and not pertinent Social History Social History Household Members: Children Housing: House Do you presently have visiting nurse or other home services: Yes (vna's 2x week) Unable to assess alcohol history related to: Unknown Alcohol intake: former Patient Tobacco Use Status: Never used Tobacco service: No Meds Allergies Allergy/AdvReac Type Severity Reaction Status Date / Time No Known Allergies Allergy Verified 07/20/23 16:53 Active Medications: Current Medications Acetaminophen (Acetaminophen 325 Mg Tablet) 650 mg PO Q6H PRN PRN Reason: Pain, Mild (Pain Scale 1-3) Last Admin: 07/24/23 20:38 Dose: 650 mg Carvedilol (Carvedilol 25 Mg Tablet) 25 mg PO BID [facility]; Protocol Last Admin: 07/27/23 07:56 Dose: 25 mg Heparin Sodium (Porcine) 50 (units/ Sodium Chloride 5 ml) 0 units IVFLUSH QSHIFT [facility] Last Admin: 07/27/23 07:51 Dose: 50 unit Dextrose (Dextrose 50 % 25 Gm/50 Ml Syringe) 25 gm IVPUSH Q15M PRN; Protocol PRN Reason: per Hypoglycemia Standing Ord. Glucose (Glucose Gel 15 Gm Gel..Gram.) 15 gm PO Q15M PRN; Protocol PRN Reason: per Hypoglycemia Standing Ord. Daptomycin 1,000 mg/ Sodium (Chloride) 70 mls @ 100 mls/hr IV DAILY [facility] Last Infusion: 07/26/23 09:19 Dose: Infused Insulin Glargine (Insulin Glargine,Hum.Rec.Anlog 100 Unit/Ml 10 Ml Vial) 50 unit SUBCUT BEDTIME [facility] [place] Last Admin: 07/26/23 20:43 Dose: 50 unit Insulin Human Lispro (Insulin Lispro 100 Unit/Ml 3 Ml Vial) 0 unit SUBCUT QIDACHS [facility] [place]; Protocol Last Admin: 07/27/23 07:51 Dose: 2 unit Melatonin (Melatonin 3 Mg Tablet) 6 mg PO BEDTIME PRN PRN Reason: Insomnia Last Admin: 07/26/23 00:36 Dose: 6 mg Ondansetron HCl (Ondansetron Hcl 4 Mg/2 Ml Vial) 4 mg IVPUSH Q8H PRN PRN Reason: Nausea and Vomiting Rivaroxaban (Rivaroxaban 15 Mg Tablet) 15 mg PO BID@0800,1999 [facility] Stop: 08/13/23 20:01 Last Admin: 07/27/23 07:51 Dose: 15 mg Sodium Chloride (0.9 % Sodium Chloride Flush 3 Ml Syringe) 3 ml [facility] [place] [place] Last Admin: 07/27/23 07:55 Dose: Not Given Home Medications Medication Instructions Recorded Confirmed Last Taken Type atorvastatin 10 mg tablet 10 mg PO BEDTIME 07/20/23 07/20/23 07/19/23 History carvedilol 25 mg tablet 25 mg PO BID 07/20/23 07/20/23 07/20/23 History chlorthalidone 25 mg tablet 25 mg PO DAILY 07/20/23 07/20/23 07/20/23 History glipizide 10 mg tablet 10 mg PO BID 07/20/23 07/20/23 07/20/23 History insulin degludec 100 unit/mL (3 61 unit subcut BEDTIME 07/20/23 07/20/23 07/19/23 History mL) subcutaneous pen (Tresiba FlexTouch U-100 insulin) insulin lispro 100 unit/mL 0 sliding scale dose subcut TIDAC 07/20/23 07/20/23 07/20/23 History subcutaneous pen (Humalog KwikPen (U-100) Insulin) irbesartan 300 mg tablet 300 mg PO DAILY 07/20/23 07/20/23 07/20/23 History metformin 1,000 mg tablet 1,000 mg PO BID 07/20/23 07/20/23 07/20/23 History warfarin 10 mg tablet 10 mg PO DAILY@1800 07/20/23 07/20/23 07/19/23 History warfarin 2 mg tablet 3 mg PO MOTHSA@1800 07/20/23 07/20/23 07/18/23 History warfarin 2 mg tablet 4 mg PO SUTUWEFR@1800 07/20/23 07/20/23 07/19/23 History Physical Exam Vital Signs: Last Vital Signs Temp 96.9 F 07/27/23 07:24 Pulse 68 07/27/23 07:59 Resp 18 07/27/23 07:24 BP 148/69 H 07/27/23 07:24 Pulse Ox 95 07/27/23 07:24 O2 Del Method Room Air 07/27/23 07:24 BMI result Body Mass Index 53.8 Const General: cooperative, comfortable, no acute distress, alert and awake Nutritional Appearance: obese Orientation/consciousness: patient oriented x3 HEENT Head: Yes normal to inspection Face and sinus: Yes normal facial exam Mouth: Normal oral and palatal mucosa present Teeth and gingiva: dentition normal Eyes General: appearance normal, both eyes and all related structures Pupils: Equal, round and reactive pupils present Resp Effort & Inspection: normal respiratory effort, able to speak in complete sentences, no respiratory distress and no use of accessory muscles Cardio Rate: regular rate Rhythm: regular rhythm GI Inspection: No distended Palpation (GI): Soft to palpation and nontender General: Yes no CVA tenderness Back/Spine/Pelvis Back: no CVA tenderness Skin Other: clean ulcer present bottom left foot, no surrounding erythema, scant serous drainage General skin exam: no rashes or lesions noted Neuro General: patient oriented x3, moves all extremities and CN's II-XI intact bilaterally Cranial nerves: Yes Equal, round and reactive pupils present Extrem Other: left heel bleeding, cellulitis still present but receding General: Yes normal to inspection and Yes no pedal edema Psych Appearance: grossly normal Results Lab Results 07/21/23 04:51 07/26/23 14:01 Lab results: Chemistry 07/24/23 07/26/23 05:32 14:01 Sodium 136 Potassium 4.8 Carbon Dioxide 22 BUN 85 H 68 H Creatinine 2.64 H 1.93 H Calcium 8.7 D Assessment and Plan (1) Left leg DVT: Status: Acute (2) Cellulitis: Qualifiers: Laterality: left Site of cellulitis: extremity Site of cellulitis of extremity: lower extremity Qualified Code(s): L03.116 - Cellulitis of left lower limb Status: Acute Plan 1. ROSALINE: resolved; SCr back to BSL c/w combo of infection and ARB/diureitc doubt Inf assoc GN given Scr has improved simply with IVF and holding ARB/diuretic 2. CKD 3b: BSL 1.6-1.9; sees Dr Quintero ( [facility]); w/u c/w DN 3. HTN: off ARB/diuretic for now and can r/s as outp tonce taking po better REC: r/s avapro in 1-2 days and then r/s HCTZ; checck renal labs in 3-4 days; if SCr incr again he will need UA and C3/C4 ( I willorder in case he dose not get d/c today I will arrange f/u with Ingrid D/W Dr Morse Procedures Date of Service Date of Service: 07/27/23
[2023-07-27] MEDS: DAPTOmycin 1,000 MG in 0.9 % Sodium Chloride 50 ML 100 MG IV (09:30)
[2023-07-27 10:17] LABS: Anion Gap 12 (12-20); Blood Urea Nitrogen 56 mg/dL (9-16); Carbon Dioxide 25 mmol/L (22-29); Chloride 108 mmol/L (96-108); Creatinine Clr Calc Pharmacy 68.3; Estimated Glomerular Filt Rate 38; Glucose Random 227 mg/dL (60-115); Potassium 4.9 mmol/L (3.3-5.1); Sodium 140 mmol/L (135-145)
[2023-07-27 11:26] LABS: Glucose, Whole Blood 203 mg/dL (60-115)
[2023-07-27 12:11] LABS: Appearance Urine Clear; Color Urine Yellow; Glucose Urine UA Negative (Negative); Leukocyte Esterase Urine Negative (Negative); Nitrite Urine Negative (Negative); PH 5.5 (5.0-9.0); Specific Gravity - Urine 1.015 (1.005-1.025); UMIC TRIGGER UA YES; Urine Blood Trace (Negative); Urine Ketones Negative (Negative); Urine Protein 100 (2+) mg/dL (Neg-Trace)
[2023-07-27 12:14] LABS: Bacteria Urine None Seen (None Seen); Hyaline Casts Urine 0-2 /LPF (0-2); RBC Urine 0-2 /HPF (0-2); Squamous Epithelial Cell Urine 0-2 /HPF (0-2); WBC Urine 0-5 /HPF (0-5)
--- NOTE | 2023-07-27 14:34 | P.DS_ITS ---
DS: Providers Provider Date of Service: 07/27/23 Date of admission: 07/20/23 20:09 Date of discharge: 07/27/23 Primary care physician: EMELYN ANAYA Consults: 07/21/23 05:28 Consult to Wound Care Routine Reason for consultation: ulcer to bottom of left foot, pt states has new blister on left foot 07/21/23 06:07 Consult to Hematology / Oncology Routine Consulting Provider: Mario Olmos Reason for consultation: Venous thrombosis in lower leg despite being on Coumadin 07/21/23 12:10 Consult to Infectious Diseases Routine Consulting Provider: [facility] Reason for consultation: diabetic foot wound, elevated inflammatory markers, mild cellulitis Has provider been notified: No 07/26/23 11:21 Consult to Nephrology Routine Consulting Provider: Pio Talamantes Reason for consultation: Milo vs ckd Has provider been notified: No DS: Diagnosis Discharge Diagnosis (1) Left leg DVT: Status: Acute (2) Cellulitis: Status: Acute DS: Summary Hospital Course Hospital Course: [facility] Complaint: Leg redness and swelling This is a 68-year-old male with pertinent history of factor V leiden deficiency on Coumadin, essential hypertension, insulin-dependent diabetes mellitus, RUBEN on CPAP, history of osteo s/p left great toe apmutation, chronic kidney disease who presents to the emergency department for evaluation of left leg redness and swelling. Patient states he recently came from a trip from the [facility] and noticed left leg swelling and redness. No pain. Patient states he has a chronic ulcer on the ventral aspect of the left foot which has been draining. No fevers or chills. Denies chest discomfort, palpitations, shortness of breath, abdominal pain, changes in urinary or bowel habits. In the ER, extensive cellulitis seen on the left leg and patient was initiated on IV antibiotics. Imaging concerning for underlying osteomyelitis. Non occlusive thrombus in popliteal vein: Patient is on coumadin for factor V deficiency and still has a venous thrombus in lower leg. Consulting hematology Hospital course: Patient with known DVT of the leg with history of Factor V leiden, he is on coumadin and presente new swelling of the left leg , INR was 2 .9 at the time of admission and rasied concern of coumadin failure. There was concern about cellulitis of the leg also and has been on Vancomycin and Levaquin and WBC was just 11. For DVT, she was evaluated by Hematology Dr. Olmos with recommendation to change to Xarelto. For dvt:Stop taking Coumadin, your INR will be check and when the level is below or at 2, start taking Xarelto -patient need Xarelto 15 mg po bid until 08/13/23 then switch to xarelto 20 mg daily. patient seen by ID:[email or web address] to treat wound as osteomyelitis as CT scan doesnt disprove this and cant get MRI due to renal failure and weight .Take daptomycin 1000 mg q24hrs until 09/03/23 for cellulitis and possible osteomyelitis. d/w nephro -milo on ckd -renal function near baseline , stopped irbesartan and hctz ,repeat bmp in 1 week and follow up with nephrology before starting these medications back. consider cbc,bmp ,esr ,crp lft q weekly while on antibiotics. left foot plantar wound: wound care recomended: Elevate lower lower leg and offload pressure from bottom foot,Cleanse with NS, pat dry. Apply skin prep to periwound - lightly pack wound bed with cut strip of Durafiber AG, leave a wick for easy removal. Change Daily while inpatient. Follow up outpt Wound Clinic and Study Assistant for nail maintenance. plan: dvt-patient need Xarelto 15 mg po bid until 08/13/23 then switch to xarelto 20 mg daily. possible concern osteomyelitis -daptomycin 1000 mg q24hrs until 09/03/23 for cellulitis and possible osteomyelitis. consider cbc,bmp ,esr ,crp lft q weekly while on antibiotics. Follow up with nephrology , pcp,hematology and wound care outpatient. Discussed with the patient in detail he understand and in agreement with the above plan.Assessment plan coordination time spent 50 minute. Time Attestation Discharge coordination time: Greater than 30 minutes Quality: Safe Use of Opioids Does Pt have an Active Cancer Diagnosis on the Problem List?: No Quality: Stroke Does the patient have a stroke diagnosis?: No Physical Exam Vital Signs: Vital Signs: Last Vital Signs Temp 96.9 F 07/27/23 07:24 Pulse 68 07/27/23 07:59 Resp 18 07/27/23 07:24 BP 148/69 H 07/27/23 07:24 Pulse Ox 95 07/27/23 07:24 O2 Del Method Room Air 07/27/23 07:24 BMI result Body Mass Index 53.8 Appearance: Alert.? Oriented X3.? cvs: rrr, [id number] , no murmur res: clear to auscultation ,no rhonchii or wheezing abd: no rebound or guarding ,nt, bs present. ext pulses present left lower ext erythema improving , no flacutation or pain or drainage. left foot planter area wound-seems improving neuro: moves all extermities . DS: Data Data Completed and Pending Labs on day of discharge: Laboratory Results - last 24 hr 07/26/23 07/26/23 07/26/23 14:01 16:02 19:49 Sodium Potassium Chloride Carbon Dioxide Anion Gap BUN 68 H Creatinine 1.93 H Estim Creat Clear Calc 64.0 Estimated GFR 35 POC Glucose 213 H 291 H Random Glucose Calcium Urine Color Urine Appearance Urine pH Ur Specific [place] Urine Protein Urine Glucose (UA) Urine Ketones Urine Blood Urine Nitrite Ur Leukocyte Esterase Urine RBC Urine WBC Ur Squamous Epith Cells Urine Bacteria Hyaline Casts 07/27/23 07/27/23 07/27/23 07:26 09:51 11:22 Sodium 140 Potassium 4.9 Chloride 108 Carbon Dioxide 25 Anion Gap 12 BUN 56 H Creatinine 1.81 H Estim Creat Clear Calc 68.3 Estimated GFR 38 POC Glucose 158 H 203 H Random Glucose 227 H Calcium 9.0 Urine Color Urine Appearance Urine pH Ur Specific [place] Urine Protein Urine Glucose (UA) Urine Ketones Urine Blood Urine Nitrite Ur Leukocyte Esterase Urine RBC Urine WBC Ur Squamous Epith Cells Urine Bacteria Hyaline Casts 07/27/23 11:43 Sodium Potassium Chloride Carbon Dioxide Anion Gap BUN Creatinine Estim Creat Clear Calc Estimated GFR POC Glucose Random Glucose Calcium Urine Color Yellow Urine Appearance Clear Urine pH 5.5 Ur Specific [place] 1.015 Urine Protein 100 (2+) H Urine Glucose (UA) Negative Urine Ketones Negative Urine Blood Trace H Urine Nitrite Negative Ur Leukocyte Esterase Negative Urine RBC 0-2 Urine WBC 0-5 Ur Squamous Epith Cells 0-2 Urine Bacteria None Seen Hyaline Casts 0-2 Imaging Chest x-ray: Radiologist's impression: ITS Impressions Foot X-Ray 07/20/23 17:13 IMPRESSION: Findings in the first second and third digit as described. Certainly osteomyelitis could not be excluded here. Recommend pre and postcontrast MRI for full evaluation Venous Duplex 07/20/23 20:46 IMPRESSION: Nonocclusive thrombus in the popliteal vein. Findings were communicated to Berto Belcher by telephone on 07/20/2023 at 9:[address] 07/20/23 22:19 IMPRESSION: Superficial defect along the plantar aspect of the distal midfoot compatible with an ulceration. I suspect that there is surrounding edema/cellulitis although the soft tissue changes or diffuse throughout the foot compatible with generalized edema and/or cellulitis. I do not see a focal fluid collection/abscess although this is difficult to exclude given the generalized abnormality in the soft tissues throughout the foot. No specific findings to suggest osteomyelitis. There are extensive chronic changes throughout the foot compatible with neuropathic arthropathy which have remained unchanged. 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 The findings in the head of the 3rd metatarsal appears new since the MRI May 2022. Stable postsurgical changes. Guidance Ultrasound 07/25/23 11:40 IMPRESSION: Placement of a tunneled dual-lumen Barnard catheter PLAN: -The catheter may be used immediately. This procedure was performed by Iker Rios PA-C, and supervised by Dr. Knapp Insertion Tunneled Catheter 07/25/23 11:40 IMPRESSION: Placement of a tunneled dual-lumen Barnard catheter PLAN: -The catheter may be used immediately. This procedure was performed by Iker Rios PA-C, and supervised by Dr. Knapp Discharge Plan Discharge Anticipated Discharge Date/Time: 07/22/23 09:37 Patient Disposition: er SNF Discharge Diagnosis: Acute on chronic DVT, Cellulitis of the leg Referrals: [facility] [Other] - 1 Week EMELYN ANAYA [Primary Care Provider] - 1 Week Discharge Medications: New Xarelto 15 mg tablet 15 mg PO BID Qty: 32 0RF Rx Instructions: must administer with evening meal -take xarelto by mouth 15 mg bid until 08/13/23 ,then switch to xarelto 20 mg po daily. daptomycin 500 mg recon soln 1,018 mg IV Q24H Rx Instructions: administer over 30 mins continue daptomycin 1000 mg -end date 09/03/23. Continued carvedilol 25 mg tablet 25 mg PO BID atorvastatin 10 mg tablet 10 mg PO BEDTIME insulin lispro [Humalog KwikPen Insulin] 100 unit/mL insulin pen 0 sliding scale dose subcut TIDAC Protocol: Insulin Correction Scale Less than or equal to 110 ---- Give (units): 0 111 to 150 Give (units): 0 151 to 200 Give (units): 2 201 to 250 Give (units): 4 251 to 300 Give (units): 6 301 to 350 Give (units): 8 Greater than 350 Give (units): 10 Call MD if Blood Glucose > : 350 insulin degludec [Tresiba FlexTouch U-100] 100 unit/mL (3 mL) insulin pen 61 unit subcut BEDTIME Changed glipizide 10 mg tablet 2.5 mg PO DAILY Qty: 30 0RF Discontinued warfarin 10 mg tablet 10 mg PO DAILY@1800 chlorthalidone 25 mg tablet 25 mg PO DAILY metformin 1,000 mg tablet 1,000 mg PO BID warfarin 2 mg tablet 4 mg PO SUTUWEFR@1800 Rx Instructions: TOTAL DOSE 14 MG ON SUTUWEFR warfarin 2 mg tablet 3 mg PO MOTHSA@1800 Rx Instructions: TOTAL DOSE 13 MG ON MOTHSA irbesartan 300 mg tablet 300 mg PO DAILY Discharge Orders: Discharge Order (Routine); Ordered 07/27/23 Ordered By: Adriana Morse Diet: Diabetic diet Activity on Discharge: As tolerated Stand Alone Forms: Patient Portal Discharge page Activity Restrictions/Additional Instructions: Wound care discharge instructions: Continue follow up with Out Patient Wound Clinic - continue with VNA services for home care. Continue with Study Assistant for nail maintenance. Maintain blood glucose levels per Providers orders. Left Plantar Foot - Elevate lower leg and off load pressure from bottom of foot. Use specialty shoe per your Study Assistant. Cleanse with NS, pat dry. Apply skin prep to periwound - lightly pack wound bed with cut strip of Durafiber AG, leave a wick for easy removal. Change Daily while inpatient. Care Plan Goals: DVT prevention treatment of cellulitis of the leg Health Concerns: recurrent dvt celluitis of the leg Plan of Treatment: Stop taking Coumadin, your INR will be check and when the level is below or at 2, start taking Xarelto -patient need Xarelto 15 mg po bid until 08/13/23 then switch to xarelto 20 mg daily Take daptomycin 1000 mg q24hrs until 09/03/23 for cellulitis and possible osteomyelitis. d/w nephro -milo on ckd -renal function near baseline , stopped irbesartan and hctz ,repeat bmp in 1 week and follow up with nephrology before starting these medications back. consider cbc,bmp ,esr ,crp lft q weekly while on antibiotics. Follow up with nephrology , pcp and wound care outpatient. Assessment: as above
[2023-07-29 13:08] LABS: Complement C3 160 mg/dL (82-185)
--- NOTE | 2023-08-03 10:09 | P.CDIM_ITS ---
PROVIDER RESPONSE TEXT: To clarify, the appropriate diagnosis supported by the clinical indicators: Acute QUERY TEXT: PHYSICIAN'S DOCUMENTATION REQUEST Date of Query: 07/25/2023 08:38 AM EST Patient Name: Tomi Simmons Admit Date: 07/21/2023 Dear Tirso Harper, A review of the medical record indicates additional documentation may be needed. Please review below and update the documentation accordingly. Clinical Indicators: Per Hospitalist Progress Note 07/24/23: Chronic left foot ulcer and left leg cellulitis due to DM no evidence of sepsis inflammatory markers are elevated but CT scan not showing definitive evidence of osteomyelitis, unabl e to do MRI d/t size ID recommending treating for Osteo and changing to Daptomycin Clarify which of the following accurately represents the acuity of the Osteomyelitis. Possible options might include: Acute Acute on chronic Compensated Chronic stable condition Remission Other (explain) Clinically unable to determine (explain) Thank you, Lacie Quiñonez RN Use of terms such as suspected, likely, concern for, or probable (associated with a specific diagnosi s that is being evaluated, monitored, or treated as if it exists) are acceptable and can be coded in the inpatient se tting, when documented at the time of discharge. Please use your independent medical judgment in providing your response. THIS QUERY IS PART OF THE PERMANENT MEDICAL RECORD
== END 2023-07-27 15:23 | disposition skilled nursing facility (03) | DRG 580 ==
LOC: HO.ED 18:08 → HO.EDOVER 20:14 → HO.S3 07-21 01:38
PROVIDERS: Internal Medicine; Internal Medicine Nephrology; Physician Assistant Medical; Physician Assistant Surgical; Admitting Provider Student in an Organized Health Care Education/Training Program; Emergency Provider Emergency Medicine; PCP Physician Assistant Medical; Visit Provider Internal Medicine
DX: L03.116 Cellulitis of left lower limb (principal); D68.51 Activated protein C resistance; I82.432 Acute embolism and thrombosis of left popliteal vein; Z68.43 Body mass index [BMI] 50.0-59.9, adult; M86.172 Other acute osteomyelitis, left ankle and foot; N17.9 Acute kidney failure, unspecified; E11.21 Type 2 diabetes mellitus with diabetic nephropathy; Z20.822 Contact with and (suspected) exposure to COVID-19; E11.22 Type 2 diabetes mellitus with diabetic chronic kidney disease; I12.9 Hypertensive chronic kidney disease with stage 1 through stage 4 chronic kidney disease, or unspecified chronic kidney disease; G47.33 Obstructive sleep apnea (adult) (pediatric); D69.6 Thrombocytopenia, unspecified; E66.01 Morbid (severe) obesity due to excess calories; I87.2 Venous insufficiency (chronic) (peripheral); E86.1 Hypovolemia; L97.522 Non-pressure chronic ulcer of other part of left foot with fat layer exposed; E11.69 Type 2 diabetes mellitus with other specified complication; N18.32 Chronic kidney disease, stage 3b; Z86.718 Personal history of other venous thrombosis and embolism; E86.0 Dehydration; Z79.4 Long term (current) use of insulin; Z79.01 Long term (current) use of anticoagulants; Z79.84 Long term (current) use of oral hypoglycemic drugs; Z79.899 Other long term (current) drug therapy
CPT/HCPCS: 36415; 36558; 73630; 73700; 76937; 80048; 80076; 80202; 81001; 82550; 82565; 82947; 83605; 83735; 84145; 84520; 85025; 85610; 85652; 86140; 86160; 87040; 87635; 93306; 93971; 94660; 97161; 99285; C1751; C1769; J0878; J1642; J1956; J3370; J3371; Q9957

== ENCOUNTER 2023-07-20 20:09 | Outpatient (BNV) | payer MEDICARE, SELFPAY | END 2023-07-25 11:00 | PROVIDERS: Admitting Provider Student in an Organized Health Care Education/Training Program; Emergency Provider Emergency Medicine; PCP Physician Assistant Medical; Visit Provider Student in an Organized Health Care Education/Training Program | DX: L97.522 Non-pressure chronic ulcer of other part of left foot with fat layer exposed (principal) | CPT/HCPCS: 36558; 76937 ==

== ENCOUNTER 2023-07-20 20:09 | Outpatient (BNV) | payer MEDICARE, SELFPAY | END 2023-07-22 16:00 | PROVIDERS: Admitting Provider Student in an Organized Health Care Education/Training Program; Emergency Provider Emergency Medicine; PCP Physician Assistant Medical; Visit Provider Internal Medicine Cardiovascular Disease | DX: I26.99 Other pulmonary embolism without acute cor pulmonale (principal) | CPT/HCPCS: 93306 ==

== ENCOUNTER → 2023-07-20 20:09 | Outpatient (BNV) | payer MEDICARE, SELFPAY | PROVIDERS: Admitting Provider Student in an Organized Health Care Education/Training Program; Emergency Provider Emergency Medicine; PCP Physician Assistant Medical; Visit Provider Student in an Organized Health Care Education/Training Program | DX: I82.402 Acute embolism and thrombosis of unspecified deep veins of left lower extremity (principal); L03.116 Cellulitis of left lower limb | CPT/HCPCS: 99222; 99231; 99232; 99233; 99239 ==

== ENCOUNTER → 2023-07-20 20:09 | Outpatient (BNV) | payer MEDICARE, SELFPAY | PROVIDERS: Admitting Provider Student in an Organized Health Care Education/Training Program; Emergency Provider Emergency Medicine; PCP Physician Assistant Medical; Visit Provider Internal Medicine Medical Oncology | DX: I82.402 Acute embolism and thrombosis of unspecified deep veins of left lower extremity (principal); L97.522 Non-pressure chronic ulcer of other part of left foot with fat layer exposed | CPT/HCPCS: 99222 ==

== ENCOUNTER → 2023-07-20 20:09 | Outpatient (BNV) | payer MEDICARE, SELFPAY | PROVIDERS: Admitting Provider Student in an Organized Health Care Education/Training Program; Emergency Provider Emergency Medicine; PCP Physician Assistant Medical; Visit Provider Internal Medicine | DX: L97.522 Non-pressure chronic ulcer of other part of left foot with fat layer exposed (principal) | CPT/HCPCS: 99222 ==

== ENCOUNTER 2023-08-17 13:40 | Outpatient (AMB) | payer MEDICARE, SELFPAY ==
[2023-08-17 13:54] VITALS: PULSE 69; TEMP 36.4; O2SAT 99
--- NOTE | 2023-08-17 13:54 | MHC.OFFVIS ---
Intake Vital Signs 08/17/23 13:54 Pulse 69 Pulse Source Pulse Oximeter Temp 97.6 F Temp Source Oral Pulse Oximetry (%) 99 Intake Visit Reasons: C picc end of dapto 09/03 Allergies No Known Allergies Allergy (Verified 08/17/23 13:54) HPI C picc end of dapto 09/03 HPI Details He feels foot has improved. He has no trouble with Daptomycin [facility] Medical History Amputation toe Chronic ulcer of left foot Factor V Leiden Diabetes Social History Household Members: Children Housing: House Do you presently have visiting nurse or other home services: Yes (vna's 2x week) Unable to assess alcohol history related to: Unknown Alcohol intake: former Patient Tobacco Use Status: Never used Tobacco service: No Review of Systems Const All systems reviewed & are unremarkable except as noted in HPI and below Physical Exam Vital Signs: Last Vital Signs Temp 97.6 F 08/17/23 13:54 Pulse 69 08/17/23 13:54 Pulse Ox 99 08/17/23 13:54 Const General: cooperative Orientation/consciousness: patient oriented x3 HEENT Head: Yes normal to inspection Mouth: Normal oral and palatal mucosa present Eyes General: appearance normal, both eyes and all related structures Pupils: Equal, round and reactive pupils present Resp Effort & Inspection: normal respiratory effort Cardio Rate: regular rate Rhythm: regular rhythm GI Palpation (GI): Soft to palpation and nontender General: Yes no CVA tenderness Back/Spine/Pelvis Back: no CVA tenderness Skin General skin exam: no rashes or lesions noted Neuro General: patient oriented x3 Cranial nerves: Yes CN's II-XII intact bilaterally and Yes Equal, round and reactive pupils present Extrem General: Yes normal to inspection Psych Appearance: grossly normal Assessment & Plan Assessment & Plan (1) Chronic ulcer of left foot: Comment: He feels ulcer has improved. Code(s): L97.529 - Non-pressure chronic ulcer of other part of left foot with unspecified severity Qualifiers: Non-pressure ulcer stage: with fat layer exposed Qualified Code(s): L97.522 - Non-pressure chronic ulcer of other part of left foot with fat layer exposed Plan: Stop IV antibiotics. Po antibiotic month or two Orders: Orders IR cvc remove any age 1208/17/23 L97.529 - Non-pressure chronic ulcer of other part of left foot with unspecified severity Medications: New doxycycline hyclate 100 mg PO BID 60 caps 1RF 30 days Coding Level of Care Code Est Pt Level 3 (34820) Diagnoses Chronic ulcer of left foot L97.522 Non-pressure ulcer stage: with fat layer exposed
== END 2023-08-17 14:29 | disposition home or self-care (01) ==
PROVIDERS: PCP Physician Assistant Medical; Visit Provider Internal Medicine
DX: L97.522 Non-pressure chronic ulcer of other part of left foot with fat layer exposed (principal)
CPT/HCPCS: 99213

== ENCOUNTER → 2023-08-17 13:40 | Outpatient (BNVA) | payer MEDICARE, SELFPAY | PROVIDERS: PCP Physician Assistant Medical; Visit Provider Internal Medicine | DX: L97.522 Non-pressure chronic ulcer of other part of left foot with fat layer exposed (principal) | CPT/HCPCS: 99212 ==

== ENCOUNTER → 2023-08-22 09:40 | Outpatient (BNV) | payer MEDICARE, SELFPAY | PROVIDERS: Visit Provider Internal Medicine Medical Oncology | DX: I82.402 Acute embolism and thrombosis of unspecified deep veins of left lower extremity (principal) | CPT/HCPCS: 99443 ==

== ENCOUNTER 2023-09-02 13:04 | Outpatient (REF) | payer SELFPAY | END 2023-09-02 13:05 | disposition home or self-care (01) | LOC: HO.RADIR 13:04 | PROVIDERS: Visit Provider Internal Medicine | DX: Z13.89 Encounter for screening for other disorder (principal) ==